=== PATIENT | male | born 1945 | race Caucasian/White ===

== ENCOUNTER 2017-01-24 05:17 | Inpatient (IN) | payer OTHER, MEDICARE ==
[2017-01-24] VITALS (10 sets, daily range): BP systolic 102–140; BP diastolic 62–81; PULSE 70–87; RESP 16–18; TEMP 95.7–97.8; O2SAT 86–98
[~2017-01-24] VITALS: Ht 182.9 cm; Wt 87.5 kg
[~2017-01-24 05:17] MED LIST: ALBU8I INH; CENTTAB9 PO; DIPH2%T PO; FLUT50SP EACH NARE; FURO20 PO; GABA400 PO; LACT10SO27 PO; LANTUS2P SQ; MAGN400 PO; METHO500 PO; OMEP20TA PO; PROB1CAP12 PO; RANI150 PO; RIFA550 PO; THIA100T PO; TRAZ100T4 PO; VITA200017 PO; [UNRECOGNIZED DRUG - CODE] PO
[2017-01-24] MEDS ORDERED: SODIUM CHLORIDE 0.9% FLUSH 10 ML FLUSH IV FLUSH PRN ×3 (05:30→21:15)
--- NOTE | 2017-01-24 05:44 | PD ---
HPI Chief Complaint: Fall Time Seen by Provider: 05:22 Travel History International Travel<30 days: No Contact w/Intl Traveler<30days: No Traveled to known affect area: No History of Present Illness HPI 71-year-old male brought in by ambulance from home for evaluation of left leg pain and deformity after mechanical fall. The patient states that he got out of bed and twisted the wrong way, falling onto a chair by his bedside. He denies head injury or LOC. No head neck or back pain. EMS reports obvious deformity to his left distal femur, so a hair traction splint was applied. Upon arrival to the emergency department the patient has brisk bilateral dorsalis pedis pulses with brisk capillary refill in bilateral feet. He fractured his left hip in March 2015 which was repaired in [place] and was later advised on 01/29/[address] Chase in this hospital. The patient received 10 mg of IV morphine as well as 4 mg of IV Zofran prior to arrival to the emergency department and reports that his pain is mild in his left thigh. The patient is also complaining of mild right ankle pain. PFSH Past Medical History Hx Anticoagulant Therapy: Yes Anemia: Yes Arthritis: Yes Asthma: No Autoimmune Disease: No Blood Disorders: No Anxiety: Yes Depression: Yes Heart Rhythm Problems: No Cancer: No Cardiovascular Problems: Yes High Cholesterol: Yes Chemotherapy: No Chest Pain: No Congestive Heart Failure: Yes (NOT SURE) Cirrhosis: Yes COPD: No Cerebrovascular Accident: Yes Coronary Artery Disease: Yes Dementia: Yes Diabetes: Yes Diminished Hearing: No Diverticulitis: Yes Endocrine: Yes Gastrointestinal Disorders: Yes (GASTRITIS IN PAST) GERD: Yes (GASTRITIS ) Glaucoma: No Genitourinary: Yes Headaches: No Hepatitis: No Hiatal Hernia: No Heparin Induced Thrombocytopen: Yes Hypertension: Yes (H/O) Immune Disorder: No Inguinal Hernia: Yes Kidney Stones: No Musculoskeletal: Yes (LEFT HIP, ARTHRITIS CERVICAL) Neurologic: Yes (DIABETIC NEUROPATHY) Psychiatric: Yes (ANXIETY) Reproductive: No Respiratory: Yes Immunizations Current: Yes Migraines: No Myocardial Infarction: No Radiation Therapy: No Renal Failure: No Seizures: No Sickle Cell Disease: No Sleep Apnea: Yes Thyroid Disease: No Ulcer: No Past Surgical History Abdominal Surgery: Yes (DOUBLE HERNIA REPAIR, PARACENTHESIS X 2 ) AICD: No Appendectomy: No Arteriovenous Shunt: No Body Medical Devices: HARDWARE LEFT HIP Cardiac Surgery: Yes ( LEFT CAROTID ENDARTECTOMY) Cholecystectomy: No Ear Surgery: No Endocrine Surgery: No Eye Surgery: No Genitourinary Surgery: No Gynecologic Surgery: No Insulin Pump: Yes Joint Replacement: No Oral Surgery: No Pacemaker: No Thoracic Surgery: No Other Surgery: Yes (RIGHT THUMB) Social History Alcohol Use: No Tobacco Use: No Substance Use: No Allergies-Medications (Allergen,Severity, Reaction): Coded Allergies: Acetaminophen (Verified Allergy, Severe, LIVER DISEASE, 02/02/16) Tramadol (Verified Allergy, Mild, DUE TO LIVER DISEASE, 02/02/16) INFO OBTAINED FROM . PT IS TAKING TRAMADOL Codeine (Verified Allergy, Unknown, 02/02/16) NOT ALLERGIC ACCORDING TO Diclofenac (Verified Allergy, Unknown, UBNKNOWN REACTION, 02/02/16) Salsalate (Verified Allergy, Unknown, DUE TO KIDNEY FUNCTION, 02/02/16) *MDRO Multi-Drug Resistant Organism (Verified Adverse Reaction, Unknown, ) MRSA (hand wound) - 12/18/08 Reported Meds & Prescriptions Reported Meds & Active Scripts Active Active Prescriptions or Reported Medications Unobtainable Review of Systems Except as stated in HPI: all other systems reviewed are Neg Physical Exam Narrative GENERAL: Well-developed, well-nourished, awake, alert, no acute distress. SKIN: Focused skin assessment warm/dry. No lacerations, abrasions, or ecchymosis. HEAD: Atraumatic. Normocephalic. EYES: Pupils equal and round. No scleral icterus. No injection or drainage. ENT: No nasal bleeding or discharge. Mucous membranes pink and moist. NECK: Trachea midline. No JVD. No midline cervical spine step-off or tenderness. CARDIOVASCULAR: Regular rate and rhythm. Bilateral dorsalis pedis pulses are brisk and equal. Brisk capillary refill in bilateral feet which are warm. RESPIRATORY: No accessory muscle use. Clear to auscultation. Breath sounds equal bilaterally. GASTROINTESTINAL: Abdomen soft, non-tender, nondistended. MUSCULOSKELETAL: Left leg is placed in a Hare traction splint. There is tenderness along the entire left femur. Patient also has some mild tenderness to the right lateral ankle without obvious deformity, with normal range of motion. Rest of his joints and extremities are without deformity, without tenderness, with normal range of motion. NEUROLOGICAL: Awake and alert. No obvious cranial nerve deficits. Motor grossly within normal limits. Normal speech. Normal sensation in bilateral feet. PSYCHIATRIC: Appropriate mood and affect; insight and judgment normal. Data Data Last Documented VS Vital Signs Date Time Temp Pulse Resp B/P Pulse Ox O2 Delivery O2 Flow Rate FiO2 01/24/17 06:26 78 18 126/68 96 Nasal Cannula 4 01/24/17 05:21 97.8 Orders Hip, Uni(Ap&Lat) W Ap Pelvis (01/24/17 ) Femur (Ap & Lat/2vws) (01/24/17 ) Ankle, Complete ([id number]) (01/24/17 ) Chest, Single Ap (01/24/17 ) Basic Metabolic Panel (Bmp) (01/24/17 05:22) Complete Blood Count With Diff (01/24/17 05:22) Prothrombin Time / Inr (Pt) (01/24/17 05:22) Act Partial Throm Time (Ptt) (01/24/17 05:22) Iv Access Insert/Monitor (01/24/17 05:22) Ecg Monitoring (01/24/17 05:22) Oximetry (01/24/17 05:22) Sodium Chloride 0.9% Flush (Ns Flush) (01/24/17 05:30) Knee, Ltd (1 Or 2vws) (01/24/17 ) Consult Orthopedic (01/24/17 ) Johnston's Traction (01/24/17 ) Labs Laboratory Tests Test 01/24/17 05:25 White Blood Count 7.6 TH/MM3 Red Blood Count 4.64 MIL/MM3 Hemoglobin 13.5 GM/DL Hematocrit 41.4 % Mean Corpuscular Volume 89.3 FL Mean Corpuscular Hemoglobin 29.2 PG Mean Corpuscular Hemoglobin 32.7 % Concent Red Cell Distribution Width 15.6 % Platelet Count 197 TH/MM3 Mean Platelet Volume 8.3 FL Neutrophils (%) (Auto) 70.9 % Lymphocytes (%) (Auto) 14.5 % Monocytes (%) (Auto) 10.6 % Eosinophils (%) (Auto) 3.2 % Basophils (%) (Auto) 0.8 % Neutrophils # (Auto) 5.4 TH/MM3 Lymphocytes # (Auto) 1.1 TH/MM3 Monocytes # (Auto) 0.8 TH/MM3 Eosinophils # (Auto) 0.2 TH/MM3 Basophils # (Auto) 0.1 TH/MM3 CBC Comment DIFF FINAL Differential Comment Prothrombin Time 12.3 SEC Prothromb Time International 1.1 RATIO Ratio Activated Partial 26.7 SEC Thromboplast Time MDM Medical Decision Making Medical Screen Exam Complete: Yes Emergency Medical Condition: Yes Differential Diagnosis Left hip fracture, left hip dislocation, left femur fracture, left knee fracture , right ankle fracture versus sprain Narrative Course Left femur x-ray shows a spiral fracture of the distal left femur about 16 cm distal to the intramedullary portion of the artificial left hip. Case discussed with orthopedic surgeon Dr. Garcia who is covering for Dr. Chase. Patient will be admitted to the medical service and kept NPO for likely ORIF today. Patient made aware of left femur fracture. Again his left leg was placed in a Hare traction splint by EMS. He has good dorsalis pedis pulses bilaterally. Pain is 0 when at rest, worse with palpation and movements. He has good sensation in his feet bilaterally. Case discussed with hospitalist Dr. Lara who will admit the patient to her service. Diagnosis Primary Impression: Closed left femoral fracture Qualified Code: S72.492A - Other closed fracture of distal end of left femur, initial encounter Additional Impression: Fall Qualified Code: W19.XXXA - Fall, initial encounter Admitting Information Admitting Physician Requests: Admit Scripts Unable to Obtain Active Prescriptions or Reported Meds Abundio Rodriguez MD Jan 24, 2017 05:44
[2017-01-24 05:54] LABS: AUTOMATED NEUTROPHIL # 5.4 TH/MM3 (1.8-7.7); BASOPHIL # 0.1 TH/MM3 (0-0.2); BASOPHIL % 0.8 % (0.0-2.0); EOSINOPHIL # 0.2 TH/MM3 (0-0.4); EOSINOPHIL % 3.2 % (0.0-4.0); HEMATOCRIT 41.4 % (39.0-51.0); HEMO FLAGS DIFF FINAL; LYMPH % 14.5 % (9.0-44.0); LYMPHOCYTE # 1.1 TH/MM3 (1.0-4.8); MEAN CELL VOLUME 89.3 FL (80.0-100.0); MEAN CORPUSCULAR HEMOGLOBIN 29.2 PG (27.0-34.0); MEAN CORPUSCULAR HGB CONC 32.7 % (32.0-36.0); MONO % 10.6 % (0.0-8.0); NEUT % 70.9 % (16.0-70.0); PLATELET COUNT 197 TH/MM3 (150-450); RED BLOOD COUNT 4.64 MIL/MM3 (4.50-5.90); RED CELL DISTRIBUTION WIDTH 15.6 % (11.6-17.2); WHITE BLOOD COUNT 7.6 TH/MM3 (4.0-11.0)
[2017-01-24 06:11] LABS: APTT (PATIENT) 26.7 SEC (24.3-30.1); INTERNATIONAL NORMALIZED RATIO 1.1 RATIO; PROTHROMBIN TIME - PATIENT 12.3 SEC (9.8-11.6)
--- NOTE | 2017-01-24 06:38 | RADRPT ---
EXAM DATE/TIME: 01/24/2017 05:32 [facility] COMPARISON: No previous studies available for comparison. INDICATIONS : Right ankle pain; fall today. MEDICAL HISTORY : None. SURGICAL HISTORY : None. ENCOUNTER: Initial ACUITY: 1 day PAIN SCORE: 3/10 LOCATION: Right ankle. FINDINGS: Three view exam was performed of the right ankle. The bony structures are in normal alignment. No e vidence of fracture, dislocation, or soft tissue swelling. The ankle mortise is intact. No radiopaq ue foreign bodies are seen. Bony mineralization is normal. CONCLUSION: 1. Negative examination of the ankle. Larry Tobin MD on January 24, 2017 at 6:36 Board Certified Radiologist. This report was verified electronically.
[2017-01-24 06:39] LABS: POTASSIUM 4.1 MEQ/L (3.5-5.1)
--- NOTE | 2017-01-24 06:39 | RADRPT ---
EXAM DATE/TIME: 01/24/2017 05:39 [facility] COMPARISON: No previous studies available for comparison. INDICATIONS : Left hip pain; fall today. MEDICAL HISTORY : None. SURGICAL HISTORY : Left total hip. ENCOUNTER: Initial ACUITY: 1 day PAIN SCORE: 5/10 LOCATION: Left hip FINDINGS: Left hip arthroplasty is present. There is no evidence of fracture or dislocation. Degenerative medley es present at the lumbosacral junction. Bony mineralization is normal. CONCLUSION: 1. There is no evidence of acute fracture. Larry Tobin MD on January 24, 2017 at 6:37 Board Certified Radiologist. This report was verified electronically.
--- NOTE | 2017-01-24 06:39 | RADRPT ---
EXAM DATE/TIME: 01/24/2017 05:34 [facility] COMPARISON: CHEST SINGLE AP, February 08, 2016, 13:12. INDICATIONS : Chest discomfort; fall today. MEDICAL HISTORY : Congestive heart failure. Hypercholesterolemia. Hypertension. Diabetes SURGICAL HISTORY : Coronary artery stent. ENCOUNTER: Initial ACUITY: 1 day PAIN SCORE: 10 LOCATION: Bilateral chest FINDINGS: The cardiac silhouette is normal in transverse diameter. There are findings of congestive heart failu re with interstitial and alveolar opacity bilaterally. There is left lower lobe atelectasis versus pn eumonia. A small left sided effusion is present. CONCLUSION: 1. Cardiomegaly and findings of congestive heart failure. The findings have worsened when compared wi th the prior examination. Larry Tobin MD on January 24, 2017 at 6:36 Board Certified Radiologist. This report was verified electronically.
--- NOTE | 2017-01-24 06:40 | RADRPT ---
EXAM DATE/TIME: 01/24/2017 05:45 [facility] COMPARISON: No previous studies available for comparison. INDICATIONS : Left leg pain fall today. MEDICAL HISTORY : None. SURGICAL HISTORY : Left total hip. ENCOUNTER: Initial ACUITY: 1 day PAIN SCORE: 10/10 LOCATION: Left femur. FINDINGS: There is an oblique fracture of the distal femur without intra-articular extension was one shafts wid th lateral displacement of the distal fracture fragment. CONCLUSION: 1. Distal femur fracture Larry Tobin MD on January 24, 2017 at 6:38 Board Certified Radiologist. This report was verified electronically.
--- NOTE | 2017-01-24 06:40 | RADRPT ---
EXAM DATE/TIME: 01/24/2017 05:49 [facility] COMPARISON: No previous studies available for comparison. INDICATIONS : Left knee pain; fall today. MEDICAL HISTORY : None. SURGICAL HISTORY : None. ENCOUNTER: Initial ACUITY: 1 day PAIN SCORE: 6/10 LOCATION: Left knee FINDINGS: There is no evidence of acute fracture. Bony mineralization is normal. The joint space is maintained. Distal femur fracture is again identified CONCLUSION: 1. There is no evidence of acute fracture. Larry Tobin MD on January 24, 2017 at 6:38 Board Certified Radiologist. This report was verified electronically.
[2017-01-24] MEDS ORDERED: GLUCAGON 1 MG/ML VIAL OTHER PRN (06:45)
[2017-01-24] MEDS ORDERED: ONDANSETRON HCL 4 MG/2 ML VIAL IVP PRN ×2 (06:45→21:15)
[2017-01-24] MEDS ORDERED: DEXTROSE 50% IN WATER 50 ML VIAL(D50) IV PUSH PRN (06:45)
[2017-01-24] MEDS ORDERED: BISACODYL 10 MG SUPP RECTAL PRN ×2 (06:45→21:15)
[2017-01-24] MEDS: INSULIN ASPART SUPPLEMENTAL SCALE SQ SCH ×4 (07:00→21:00)
[2017-01-24] MEDS ORDERED: DIPY25TA25 PO (07:45)
[2017-01-24] MEDS ORDERED: XIFA550T4 PO (07:45)
[2017-01-24] MEDS ORDERED: CHOL100025 CHEW (07:45)
[2017-01-24] MEDS ORDERED: LACT10SO27 PO (07:45)
[2017-01-24] MEDS ORDERED: ACID100C PO (07:45)
[2017-01-24] MEDS ORDERED: SPIR100T PO (07:45)
[2017-01-24] MEDS ORDERED: GABA400C5 PO (07:45)
[2017-01-24] MEDS ORDERED: ZANT300T PO (07:45)
[2017-01-24] MEDS ORDERED: BENA25TA3 PO (07:45)
[2017-01-24] MEDS ORDERED: VENTAER INH (07:45)
[2017-01-24] MEDS ORDERED: METH500T3 PO (07:45)
[2017-01-24] MEDS ORDERED: FLUT50SP EACH NARE (07:45)
[2017-01-24] MEDS ORDERED: THIA100T PO (07:45)
[2017-01-24] MEDS ORDERED: OMEP20TA PO (07:45)
[2017-01-24] MEDS ORDERED: LANTUS2P SQ (07:45)
[2017-01-24] MEDS ORDERED: MAGN400C2 PO (07:45)
[2017-01-24] MEDS: SODIUM CHLOR 0.9% 1000 ML INJ 1,000 ML IV SCH ×2 (08:02→16:34)
[2017-01-24] MEDS: MORPHINE SULFATE 4 MG/ML INJ IV PRN ×3 (08:45→16:28)
--- NOTE | 2017-01-24 08:51 | HHI.HP ---
[facility] Admission Diagnosis closed left distal femur fracture Diagnoses: (1) Closed left femoral fracture (2) DM (diabetes mellitus) Chief Complaint: Left hip pain Travel History International Travel<30 Days: No Contact w/Intl Traveler <30 Da: No Traveled to Known Affected Are: No History of Present Illness 71-year-old male with a history of diabetes type 2 was brought to the ED by EMS for evaluation of an acute onset of left hip pain status post mechanical fall. Patient states sometimes around 4 AM this morning, as he was getting out of bed he got tangled in his bed sheets and twisted his leg and overall way, falling onto a chair by the bedside. Denies any head trauma or loss of consciousness. However immediately felt severe left hip pain rated 10/ 10 intensity. Patient denies putting any weights at a time on his left lower extremity. The ED, Left femur x-ray shows a spiral fracture of the distal left femur about 16 cm distal to the intramedullary portion of the artificial left hip for which orthopedic surgery has been consulted. Patient has no chest pain , shortness of breath. He denies any GI bleed. Review of Systems Other 12 systems reviewed and are negative except for the one mentioned in history of present illness Past Family Social History Past Medical History DM Liver cirrhosis COPD Chronic pain Past Surgical History Left hip surgery March 2015 DOUBLE HERNIA REPAIR, PARACENTHESIS X 2 HARDWARE LEFT HIP LEFT CAROTID ENDARTECTOMY) RIGHT THUMB) Allergies: Coded Allergies: Acetaminophen (Verified Allergy, Severe, LIVER DISEASE, 02/02/16) Tramadol (Verified Allergy, Mild, DUE TO LIVER DISEASE, 02/02/16) INFO OBTAINED FROM . PT IS TAKING TRAMADOL Codeine (Verified Allergy, Unknown, 02/02/16) NOT ALLERGIC ACCORDING TO Diclofenac (Verified Allergy, Unknown, UBNKNOWN REACTION, 02/02/16) Salsalate (Verified Allergy, Unknown, DUE TO KIDNEY FUNCTION, 02/02/16) *MDRO Multi-Drug Resistant Organism (Verified Adverse Reaction, Unknown, ) MRSA (hand wound) - 12/18/08 Family History Denies any family history of diabetes type 2 Social History Alcohol Use: No Tobacco Use: No Substance Use: No Physical Exam Vital Signs Vital Signs Date Time Temp Pulse Resp B/P Pulse Ox O2 Delivery O2 Flow Rate FiO2 01/24/17 08:33 Nasal Cannula 3.00 01/24/17 08:18 71 16 136/81 95 Nasal Cannula 3 01/24/17 07:00 97.6 75 18 117/67 95 Nasal Cannula 4 01/24/17 06:26 78 18 126/68 96 Nasal Cannula 4 01/24/17 05:27 18 95 Nasal Cannula 4 01/24/17 05:21 97.8 79 18 130/73 86 Physical Exam GENERAL: This is a well-nourished, well-developed patient, in no apparent distress. SKIN: No rashes, ecchymoses or lesions. Cool and dry. HEAD: Atraumatic. Normocephalic. No temporal or scalp tenderness. EYES: Pupils equal round and reactive. Extraocular motions intact. No scleral icterus. No injection or drainage. ENT: Nose without bleeding, purulent drainage or septal hematoma. Throat without erythema, tonsillar hypertrophy or exudate. Uvula midline. Airway patent. NECK: Trachea midline. No JVD or lymphadenopathy. Supple, nontender, no meningeal signs. CARDIOVASCULAR: Regular rate and rhythm without murmurs, gallops, or rubs. RESPIRATORY: Clear to auscultation. Breath sounds equal bilaterally. No wheezes , rales, or rhonchi. GASTROINTESTINAL: Abdomen soft, non-tender, nondistended. No hepato-splenomegaly , or palpable masses. No guarding. MUSCULOSKELETAL: Extremities without clubbing, cyanosis, or edema. No joint tenderness, effusion, or edema noted. No calf tenderness. Left hip externally rotated-Johnston's traction in place NEUROLOGICAL: Awake and alert. Cranial nerves II through XII intact. Motor and sensory grossly within normal limits. Five out of 5 muscle strength in all muscle groups. Normal speech. Laboratory Laboratory Tests Test 01/24/17 05:25 White Blood Count 7.6 Red Blood Count 4.64 Hemoglobin 13.5 Hematocrit 41.4 Mean Corpuscular Volume 89.3 Mean Corpuscular Hemoglobin 29.2 Mean Corpuscular Hemoglobin 32.7 Concent Red Cell Distribution Width 15.6 Platelet Count 197 Mean Platelet Volume 8.3 Neutrophils (%) (Auto) 70.9 Lymphocytes (%) (Auto) 14.5 Monocytes (%) (Auto) 10.6 Eosinophils (%) (Auto) 3.2 Basophils (%) (Auto) 0.8 Neutrophils # (Auto) 5.4 Lymphocytes # (Auto) 1.1 Monocytes # (Auto) 0.8 Eosinophils # (Auto) 0.2 Basophils # (Auto) 0.1 CBC Comment DIFF FINAL Differential Comment Prothrombin Time 12.3 Prothromb Time International 1.1 Ratio Activated Partial 26.7 Thromboplast Time Sodium Level 134 Potassium Level 4.1 Chloride Level 101 Carbon Dioxide Level 25.0 Anion Gap 8 Blood Urea Nitrogen 18 Creatinine 1.43 Estimat Glomerular Filtration 49 Rate Random Glucose 147 Calcium Level 8.8 Result Diagram: 01/24/1752401/24/17524 Imaging Last Impressions Knee X-Ray 01/24/17 0000 Signed Impressions: Service Date/Time: Tuesday, January 24, 2017 05:49 - CONCLUSION: 1. There is no evidence of acute fracture. Larry Tobin MD Hip and Pelvis X-Ray 01/24/17 0000 Signed Impressions: Service Date/Time: Tuesday, January 24, 2017 05:39 - CONCLUSION: 1. There is no evidence of acute fracture. Larry Tobin MD Femur X-Ray 01/24/17 0000 Signed Impressions: Service Date/Time: Tuesday, January 24, 2017 05:45 - CONCLUSION: 1. Distal femur fracture Larry Tobin MD Chest X-Ray 01/24/17 0000 Signed Impressions: Service Date/Time: Tuesday, January 24, 2017 05:34 - CONCLUSION: 1. Cardiomegaly and findings of congestive heart failure. The findings have worsened when compared with the prior examination. Larry Tobin MD Ankle X-Ray 01/24/17 0000 Signed Impressions: Service Date/Time: Tuesday, January 24, 2017 05:32 - CONCLUSION: 1. Negative examination of the ankle. Larry Tobin MD Assessment and Plan Problem List: (1) Closed left femoral fracture ICD Code: S72.92XA Status: Acute (2) DM (diabetes mellitus) ICD Code: E11.9 Status: Chronic Assessment and Plan 71 year-old man with Left hip fracture:Left femur x-ray noted and reviewed by me shows a spiral fracture of the distal left femur about 16 cm distal to the intramedullary portion of the artificial left hip. Orthopedic surgery has been consulted for evaluation for open reduction internal fixation. Keep nothing by mouth/IV fluid hydration and analgesic/narcotics when necessary. PT consult postprocedure. DVT prophylaxis post procedure per orthopedic surgery. Diabetes type 2: Hold oral hypoglycemic agent, start insulin sliding scale COPD: No exacerbation, DuoNeb when necessary and maintain oxygen saturation above 92%. DVT prophylaxis: Postprocedure per orthopedic surgery. Code Status Full code Discussed Condition With Patient, Physician Certification 2 Midnight Certification Type: Admission for Inpatient Services Order for Inpatient Services The services are ordered in accordance with Medicare regulations or non- Medicare payer requirements, as applicable. In the case of services not specified as inpatient-only, they are appropriately provided as inpatient services in accordance with the 2-midnight benchmark. Estimated LOS (days): 2 days is the estimated time the patient will need to remain in the hospital, assuming treatment plan goals are met and no additional complications. Post-Hospital Plan: Not yet determined Problem Qualifiers (1) Closed left femoral fracture: Qualified Code: S72.492A - Other closed fracture of distal end of left femur, initial encounter Dirk Rodrigues MD Jan 24, 2017 08:51
[2017-01-24] MEDS ORDERED: RESP: ALBUTEROL 2.5 MG/IPRATROPIUM 0.5 MG NEB (PRN) NEB (09:00)
[2017-01-24] MEDS ORDERED: ENALAPRILAT 1.25 MG/ML VIAL IV PUSH PRN (09:00)
[2017-01-24] MEDS ORDERED: SODIUM CHLORIDE 0.9% FLUSH 10 ML FLUSH IV FLUSH SCH (09:00)
[2017-01-24] MEDS ORDERED: ePHEDrine/NS 25 MG/5 ML SYR IV ONE (10:13)
[2017-01-24] MEDS ORDERED: PROPOFOL 200 MG/20 ML AMP IV ONE (10:13)
[2017-01-24] MEDS ORDERED: PHENYLEPH/NS 1000 MCG/10 ML SYR IV ONE (10:13)
--- NOTE | 2017-01-24 11:45 | PD.CONS ---
cc: Deejay Garcia MD Closed Left Distal Femur Fracture, Fall (Mariann Perera) [facility] Service Orthopedic Surgeons Consult Requested By ER staff Reason for Consult Closed Left Distal Femur Fracture, Fall Primary Care Physician [facility] Admission Diagnosis Closed Left Distal Femur Fracture, Fall Diagnoses: (1) Closed displaced spiral fracture of shaft of left femur Diagnosis: Principal (2) Status post total hip replacement, left (3) Fall (4) DM (diabetes mellitus) (5) Liver cirrhosis Chief Complaint: Closed Left Distal Femur Fracture, Fall (Mariann Perera) History of Present Illness 71 year old male with a history of cirrhosis to the liver and type 2 diabetes presented to [facility] this morning after a trip and fall incident. He admits he got 'tangled up in his bed sheets' and fell off of his bed, landing on his left leg. He had immediate left thigh pain and noted an obvious deformity above his knee. Patient was brought to [facility] via EMS. Upon evaluation orthopedic consultation was requested revealing a left closed distal femur fracture. Radiographs demonstrate a closed left displaced spiral distal femur fracture. The fracture does not communicate with the knee joint space. A previous left total hip arthroplasty is noted to be in good position with no surrounding fractures. Patient underwent a revised left hip surgery with Dr. Víctor Chase January 29, 2016. Procedure included removal of cannulated screws with conversion to left total hip arthroplasty. The patient lives at home with his . He admits he ambulated unassisted prior to this injury. He believes he takes an anticoagulation medication but does not recall the name at this time. and family member present at bedside. No other locating signs of musculoskeletal injury noted. (Mariann Perera) Review of Systems well outlined in medical record (Mariann Perera) Past Family Social History Past Medical History DM Liver cirrhosis COPD Chronic pain Past Surgical History Left hip cannulated screws March 2015, Left hip total arthroplasty January 2016 DOUBLE HERNIA REPAIR, PARACENTHESIS X 2 LEFT CAROTID ENDARTECTOMY) RIGHT THUMB) (Mariann Perera) Allergies: Coded Allergies: Acetaminophen (Verified Allergy, Severe, LIVER DISEASE, 02/02/16) Tramadol (Verified Allergy, Mild, DUE TO LIVER DISEASE, 02/02/16) INFO OBTAINED FROM . PT IS TAKING TRAMADOL Codeine (Verified Allergy, Unknown, 02/02/16) NOT ALLERGIC ACCORDING TO Diclofenac (Verified Allergy, Unknown, UBNKNOWN REACTION, 02/02/16) Salsalate (Verified Allergy, Unknown, DUE TO KIDNEY FUNCTION, 02/02/16) *MDRO Multi-Drug Resistant Organism (Verified Adverse Reaction, Unknown, ) MRSA (hand wound) - 12/18/08 Active Ordered Medications Current Medications Medications (Trade) Dose Ordered Sig/Kaley Route Start Time Stop Time Status Last Admin (NS Flush) 2 ml UNSCH PRN IV FLUSH 01/24/17 05:30 (D50w (Vial) Inj) 25 ml UNSCH PRN IV PUSH 01/24/17 06:45 Glucagon 1 mg 1 mg UNSCH PRN OTHER 01/24/17 06:45 (NS 1000 ml Inj) 1,000 ml @ 100 mls/hr Q10H IV 01/24/17 06:34 01/24/17 08:02 (NS Flush) 2 ml UNSCH PRN IV FLUSH 01/24/17 06:45 (NS Flush) 2 ml BID IV FLUSH 01/24/17 09:00 (Zofran Inj) 4 mg Q6H PRN IVP 01/24/17 06:45 (Dulcolax Supp) 10 mg DAILY PRN RECTAL 01/24/17 06:45 (Morphine Inj) 2 mg Q3H PRN IV 01/24/17 06:45 01/24/17 08:45 (Vasotec Inj) 1.25 mg Q6H PRN IV PUSH 01/24/17 09:00 Reported Meds & Active Scripts Active Reported Spironolactone 100 Mg Tab 100 Mg PO DAILY Thiamine (Thiamine HCl) 100 Mg Tab 100 Mg PO DAILY Acidophilus Probiotic (Lactobacillus) 100 Mg Cap 1 Cap PO DAILY Zantac (Ranitidine HCl) 300 Mg Tab 300 Mg PO HS Methocarbamol 500 Mg Tab 500 Mg PO TID Omeprazole 20 Mg Tab 20 Mg PO DAILY Magnesium Oxide 400 Mg Cap 1 Cap PO TID Lactulose Liq (Lactulose (Encephalopathy) Liq) 19 Gm/15 Ml Soln 10 Gm PO DAILY Lantus Inj (Insulin Glargine) 1,000 Unit/10 Ml Vial 5 Units SQ HS Gabapentin 400 Mg Cap 800 Cap PO HS Fluticasone Nasal [place] 50 Mcg/Act Naspr 50 Mcg EACH NARE DAILY 50 mcg/spray Dipyridamole 25 Mg Tab 100 Mg PO DAILY Benadryl Allergy (Diphenhydramine HCl) 25 Mg Tab 75 Mg PO HS PRN Vitamin D3 (Cholecalciferol) 1,000 Unit Chew 2,000 Units CHEW DAILY Ventolin Hfa 18 GM Inh (Albuterol Sulfate) 90 Mcg/Act Aer 2 Puff INH Q6H PRN Xifaxan (Rifaximin) 550 Mg Tab 550 Mg PO Q12HR Family History Denies any family history of diabetes type 2 Social History Alcohol Use: No - admits to alcohol use over 20 years ago Tobacco Use: No Substance Use: No (Mariann Perera) Physical Exam Vital Signs Vital Signs Date Time Temp Pulse Resp B/P Pulse Ox O2 Delivery O2 Flow Rate FiO2 01/24/17 08:47 95.7 73 16 118/62 94 01/24/17 08:33 Nasal Cannula 3.00 01/24/17 08:18 71 16 136/81 95 Nasal Cannula 3 01/24/17 07:00 97.6 75 18 117/67 95 Nasal Cannula 4 01/24/17 06:26 78 18 126/68 96 Nasal Cannula 4 01/24/17 05:27 18 95 Nasal Cannula 4 01/24/17 05:21 97.8 79 18 130/73 86 Physical Exam LLE: extremity in traction, Obvious deformity noted on distal thigh, tenderness to palpation over distal thigh and pain with any attempts at range of motion, moderate knee effusion noted, no calf pain, negative Ghazala's sign, pedal pulses 2+, good cap refill, neurovascular intact, freely able to move toes and ankle. Well healed scar noted over left hip. No other locating signs of musculoskeletal injury. Laboratory Laboratory Tests Test 01/24/17 05:25 White Blood Count 7.6 Red Blood Count 4.64 Hemoglobin 13.5 Hematocrit 41.4 Mean Corpuscular Volume 89.3 Mean Corpuscular Hemoglobin 29.2 Mean Corpuscular Hemoglobin 32.7 Concent Red Cell Distribution Width 15.6 Platelet Count 197 Mean Platelet Volume 8.3 Neutrophils (%) (Auto) 70.9 Lymphocytes (%) (Auto) 14.5 Monocytes (%) (Auto) 10.6 Eosinophils (%) (Auto) 3.2 Basophils (%) (Auto) 0.8 Neutrophils # (Auto) 5.4 Lymphocytes # (Auto) 1.1 Monocytes # (Auto) 0.8 Eosinophils # (Auto) 0.2 Basophils # (Auto) 0.1 CBC Comment DIFF FINAL Differential Comment Prothrombin Time 12.3 Prothromb Time International 1.1 Ratio Activated Partial 26.7 Thromboplast Time Sodium Level 134 Potassium Level 4.1 Chloride Level 101 Carbon Dioxide Level 25.0 Anion Gap 8 Blood Urea Nitrogen 18 Creatinine 1.43 Estimat Glomerular Filtration 49 Rate Random Glucose 147 Calcium Level 8.8 (Mariann Perera) Result Diagram: 01/24/17 0501/24/17 0525 Imaging Last 48 hours Impressions Knee X-Ray 01/24/17 0000 Signed Impressions: Service Date/Time: Tuesday, January 24, 2017 05:49 - CONCLUSION: 1. There is no evidence of acute fracture. Larry Tobin MD Hip and Pelvis X-Ray 01/24/17 0000 Signed Impressions: Service Date/Time: Tuesday, January 24, 2017 05:39 - CONCLUSION: 1. There is no evidence of acute fracture. Larry Tobin MD Femur X-Ray 01/24/17 0000 Signed Impressions: Service Date/Time: Tuesday, January 24, 2017 05:45 - CONCLUSION: 1. Distal femur fracture Larry Tobin MD Chest X-Ray 01/24/17 0000 Signed Impressions: Service Date/Time: Tuesday, January 24, 2017 05:34 - CONCLUSION: 1. Cardiomegaly and findings of congestive heart failure. The findings have worsened when compared with the prior examination. Larry Tobin MD Ankle X-Ray 01/24/17 0000 Signed Impressions: Service Date/Time: Tuesday, January 24, 2017 05:32 - CONCLUSION: 1. Negative examination of the ankle. Larry Tobin MD Course well outlined in medical record (Mariann Perear) Assessment & Plan Problem List: (1) Closed displaced spiral fracture of shaft of left femur (2) Fall (3) DM (diabetes mellitus) (4) Liver cirrhosis Assessment and Plan The findings were discussed with the patient. Recommendations are given for surgical management, open reduction internal fixation of left distal femur, to allow for mobilization and pain control. The nature of the planned surgical procedure, the risks, the benefits as well as postoperative expectations have been discussed with the patient in detail. In addition, alternatives of the treatment and risks were discussed. The patient acknowledges full understanding and consents to it. Patient has been cleared for surgery by Dr. Rodrigues. Written by Mariann Perera (Ashley), acting as scribe for Dr. Deejay Garcia on 01/24/17 at 11:41. (Mariann Perera) Problem List: (1) DM (diabetes mellitus) (2) Liver cirrhosis (3) Fall (4) Closed displaced spiral fracture of shaft of left femur (5) Status post total hip replacement, left Assessment and Plan The options for internal fixation were discussed including plate fixation and retrograde intramedullary gilles fixation as well as the risks and benefits of each. The possibility requiring further surgical management in the future was discussed and the patient acknowledges full understanding and consents to it. The exam, history, and the medical decision-making described in the above note were completed with the assistance of the mid-level provider. I reviewed and agree with the findings presented. I attest that I had a [id number] encounter with the patient on the same day, and personally performed and documented my assessment and findings in the medical record. (Deejay Garcia MD) Mariann Perera Jan 24, 2017 11:44 Deejay Garcia MD Jan 24, 2017 14:13
[2017-01-24] MEDS ORDERED: GENTAMICIN SULFATE 80 MG/2 ML VIAL ONE (17:28)
[2017-01-24] MEDS ORDERED: ceFAZolin INJ 1,000 MG VIAL IV ONE (18:28)
[2017-01-24] MEDS ORDERED: fentaNYL CITRATE 250 MCG/5 ML AMP ONE (20:01)
[2017-01-24] MEDS ORDERED: DO NOT ADM ANY ANTICOAGULANT DRUGS PRN (20:58)
[2017-01-24] MEDS: RIFAXIMIN 550 MG TAB PO SCH (21:00)
[2017-01-24] MEDS: LACTATED RINGER'S 1000 ML INJ 1,000 ML IV SCH (21:09)
--- NOTE | 2017-01-24 21:09 | PD.OP ---
cc: Silver Mary MD Operative Report Date of Surgery: Jan 24, 2017 Preoperative Diagnosis: (1) Closed displaced spiral fracture of shaft of left femur Postoperative Diagnosis: (1) Closed displaced spiral fracture of shaft of left femur Procedure: Open reduction internal fixation left femur fracture Implants used Synthes LCD plate with cortical screw and cable fixation Anesthesia: Gen. Surgeon: Deejay Garcia Energy Administrator(s): Mariann Perera PA-C (Ashley) The surgical procedure was assisted by my physician's assistant research scientist. Her presence was necessary throughout the case for manipulation and positioning of the surgical extremity. My PA was assisting me throughout the duration of this procedure. The skill set of the physician assistant research scientist was medically necessary to complete this procedure. During the surgical case the network technician was working at the back table and the physician assistant research scientist was directly assisting me. Operation and Findings: Indications: This 71-year-old male fell injuring his left lower extremity. The patient had pain and deformity in the thigh region on the left. He has undergone a previous left total hip arthroplasty. He [facility] to [facility]. X-rays revealed a spiral fracture of the shaft of the left femur. It was well below the prosthesis. Recommendations are given for internal fixation. Procedure and findings: The patient was taken to the operative suite and after undergoing an adequate level of general anesthesia was placed in the lateral decubitus position on the operating table. Preoperative antibiotics consisted of Ancef 2 g IV. The left lower extremity was then prepped and draped in usual sterile fashion with alcohol and Hibiclens. A lateral incision was made along the thigh. This was carried down through skin and subcutaneous tense tissue with a knife. Hemostasis was obtained with cautery. The iliotibial band was identified and split longitudinally. The vastus lateralis muscle was dissected from the posterior fascia to the femur. Perforating vessels were coagulated. The fracture site was identified. It was thoroughly irrigated and curetted of clot. With traction and reduction clamps the fracture was reduced and held. 2 cerclage cables were placed. This held the reduction. A Synthes LCD plate was then applied to the lateral aspect. The position was checked in both the AP and lateral planes with the C-arm. Cortical screw fixation was accomplished proximally and distally. Because of the previous prosthesis it was elected to extend the plate beyond the tip of the prosthesis to prevent a stress riser. 2 cables were placed proximally. The position of the fracture reduction and placement of the internal fixation were checked in both the AP and lateral planes with C-arm. The wound was then thoroughly irrigated with pulse lavage. A Hemovac drain was left in place. Incision was closed in layers utilizing #1 Vicryl suture on the iliotibial band, 2-0 Vicryl suture in subcutaneous tissue and pola on the skin. Sterile dressings were applied, the patient was awakened, transferred to the hospital bed and taken to the recovery room in stable condition. Estimated blood loss: 250 cc Complications: None Deejay Garcia MD Jan 24, 2017 21:09
[2017-01-24] MEDS ORDERED: *MEPERIDINE 25 MG INJ VIAL PERIprocedural Use ONLY ONE (21:13)
[2017-01-24] MEDS ORDERED: TEMAZEPAM 15 MG CAP PO PRN (21:15)
[2017-01-24] MEDS ORDERED: POVIDONE IODINE 10% SOLN 118 ML BOTTLE TOPICAL PRN (21:15)
[2017-01-24] MEDS ORDERED: ACETAMINOPHEN 325 MG TAB PO PRN (21:15)
[2017-01-24] MEDS ORDERED: HYDROmorphone HCL 4 MG TAB PO PRN (21:15)
[2017-01-24] MEDS ORDERED: Post-op Orders (for Pharmacy) MISC XX ONE (21:15)
--- NOTE | 2017-01-24 21:58 | RADRPT ---
EXAM DATE/TIME: 01/24/2017 20:11 [place] COMPARISON: No previous studies available for comparison. INDICATIONS : Open reduction internal fixation. MEDICAL HISTORY : None. SURGICAL HISTORY : None. ENCOUNTER: Subsequent ACUITY: 2 days PAIN SCORE: Non-responsive. LOCATION: Left lateral FINDINGS: Multiple spot films reveal plate and screw fixation of the left femur. No complications identified. CONCLUSION: 1. Plate and screw fixation of left femoral shaft fracture. Deep Schmitz MD on January 24, 2017 at 21:55 Board Certified Radiologist. This report was verified electronically.
[2017-01-24] MEDS: ceFAZolin 2 GM PREMIX 50 ML IV SCH (23:31)
[2017-01-24] MEDS: MORPHINE SULFATE 8 MG/ML INJ IV PUSH PRN (23:32)
[2017-01-25] VITALS (8 sets, daily range): BP systolic 119–135; BP diastolic 58–90; PULSE 92–98; RESP 17–18; TEMP 97.2–98.8; O2SAT 92–98
[2017-01-25] MEDS: MORPHINE SULFATE 8 MG/ML INJ IV PUSH PRN (03:50)
[2017-01-25] MEDS: ceFAZolin 2 GM PREMIX 50 ML IV SCH ×2 (05:38→12:13)
[2017-01-25] MEDS: INSULIN ASPART SUPPLEMENTAL SCALE SQ SCH ×4 (06:20→20:14)
[2017-01-25 07:42] LABS: AUTOMATED NEUTROPHIL # 8.9 TH/MM3 (1.8-7.7); BASOPHIL % 0.4 % (0.0-2.0); EOSINOPHIL # 0.1 TH/MM3 (0-0.4); EOSINOPHIL % 0.7 % (0.0-4.0); HEMATOCRIT 32.8 % (39.0-51.0); HEMO FLAGS DIFF FINAL; LYMPHOCYTE # 0.6 TH/MM3 (1.0-4.8); MEAN CELL VOLUME 89.1 FL (80.0-100.0); MEAN CORPUSCULAR HEMOGLOBIN 30.5 PG (27.0-34.0); MEAN CORPUSCULAR HGB CONC 34.2 % (32.0-36.0); MONO % 9.2 % (0.0-8.0); NEUT % 83.7 % (16.0-70.0); PLATELET COUNT 217 TH/MM3 (150-450); RED BLOOD COUNT 3.69 MIL/MM3 (4.50-5.90); RED CELL DISTRIBUTION WIDTH 15.5 % (11.6-17.2); WHITE BLOOD COUNT 10.6 TH/MM3 (4.0-11.0)
[2017-01-25 08:17] LABS: ALKALINE PHOSPHATASE 139 U/L (45-117); ALT (GPT) 26 U/L (12-78); ANION GAP 8 MEQ/L (5-15); AST (GOT) 46 U/L (15-37); BLOOD UREA NITROGEN 21 MG/DL (7-18); CHLORIDE 102 MEQ/L (98-107); GLOMERULAR FILTRATION RATE 48 ML/MIN (>89); POTASSIUM 5.2 MEQ/L (3.5-5.1); SODIUM (NA) 133 MEQ/L (136-145); TOTAL BILIRUBIN ADULT 1.1 MG/DL (0.2-1.0)
[2017-01-25] MEDS: RIFAXIMIN 550 MG TAB PO SCH ×2 (08:25→20:14)
[2017-01-25] MEDS: SPIRONOLACTONE 100 MG TAB PO SCH (08:25)
--- NOTE | 2017-01-25 08:28 | PD.ORT.PN ---
Subjective Post Op Day #: 1 Subjective Remarks Patient laying comfortably in bed and answering questions appropriately. admits left thigh pain is well controlled at the moment. No new complaints Objective Vitals Vital Signs Date Time Temp Pulse Resp B/P Pulse Ox O2 Delivery O2 Flow Rate FiO2 01/25/17 04:00 97.4 97 18 119/58 98 01/25/17 00:00 97.2 93 18 135/90 96 01/24/17 22:28 94 Nasal Cannula 3.00 01/24/17 22:15 96.2 87 18 140/78 94 01/24/17 21:45 98.4 84 16 128/82 95 Nasal Cannula 3 01/24/17 21:30 85 16 131/86 94 Nasal Cannula 3 01/24/17 21:15 86 16 130/88 93 Nasal Cannula 3 01/24/17 21:00 89 16 137/90 92 Nasal Cannula 3 01/24/17 20:55 97.6 91 16 142/91 99 Nasal Cannula 4 01/24/17 17:49 92 Nasal Cannula 3.00 01/24/17 16:29 97.1 75 16 117/80 95 01/24/17 12:51 92 Nasal Cannula 3.00 01/24/17 11:53 96.2 70 16 102/68 98 01/24/17 08:47 95.7 73 16 118/62 94 01/24/17 08:33 Nasal Cannula 3.00 I/O 01/24/17 01/24/17 01/24/17 01/25/17 01/25/17 01/25/17 07:00 15:00 23:00 07:00 15:00 23:00 Intake Total 300 ml 2050 ml 888 ml Output Total 450 ml 690 ml Balance 300 ml 1600 ml 198 ml Intake Oral 240 ml IV Total 300 ml 50 ml 648 ml Other 2000 ml Output Urine Total 650 ml Drainage Total 40 ml Estimated Blood Loss 450 ml # Voids 0 # Bowel Movements 0 Result Diagram: 01/25/1770501/25/17705 Imaging Last Impressions Knee X-Ray 01/24/17 0000 Signed Impressions: Service Date/Time: Tuesday, January 24, 2017 05:49 - CONCLUSION: 1. There is no evidence of acute fracture. Larry Tobin MD Hip and Pelvis X-Ray 01/24/17 0000 Signed Impressions: Service Date/Time: Tuesday, January 24, 2017 05:39 - CONCLUSION: 1. There is no evidence of acute fracture. Larry Tobin MD Femur X-Ray 01/24/17 0000 Signed Impressions: Service Date/Time: Tuesday, January 24, 2017 20:11 - CONCLUSION: 1. Plate and screw fixation of left femoral shaft fracture. Deep Schmitz MD Chest X-Ray 01/24/17 0000 Signed Impressions: Service Date/Time: Tuesday, January 24, 2017 05:34 - CONCLUSION: 1. Cardiomegaly and findings of congestive heart failure. The findings have worsened when compared with the prior examination. Larry Tobin MD Ankle X-Ray 01/24/17 0000 Signed Impressions: Service Date/Time: Tuesday, January 24, 2017 05:32 - CONCLUSION: 1. Negative examination of the ankle. Larry Tobin MD Procedures Open reduction internal fixation left femur fracture (01/24/17) Objective Remarks LLE: Dressing dry and intact. Brace in place. Drain in place. Tender to palpation with mild swelling around incision site. Appropriate range of motion expected post operatively. Freely able to move distal digits. No calf pain. Negative Ghazala's sign. Good cap refill. 2+ pedal pulses. Neurovascular intact. Assessment & Plan Ortho Post Op Day #: 1 Problem List: (1) DM (diabetes mellitus) (2) Liver cirrhosis (3) Fall (4) Closed displaced spiral fracture of shaft of left femur (5) Status post total hip replacement, left Assessment and Plan Open reduction internal fixation left femur fracture Ortho status stable POD #1. Progress rehab - toe touch left lower extremity change dressing and remove drain tomorrow. CM for HHC vs rehab Lovenox for DVT prophylaxis. Discharge planning Mariann Perera Jan 25, 2017 08:28
[2017-01-25] MEDS: HYDROmorphone HCL 2 MG TAB PO PRN ×3 (08:30→17:37)
[2017-01-25] MEDS: SODIUM CHLORIDE 0.9% FLUSH 10 ML FLUSH IV FLUSH SCH ×2 (09:00→20:15)
[2017-01-25] MEDS: LACTATED RINGER'S 1000 ML INJ 1,000 ML IV SCH ×2 (09:39→20:15)
--- NOTE | 2017-01-25 11:30 | HHI.PR ---
Subjective Remarks Follow-up left hip fracture 01/25/17-patient seen and examined; reports improvement of left hip pain. Currently afebrile. Denies any diarrhea. Objective Vitals Vital Signs Date Time Temp Pulse Resp B/P Pulse Ox O2 Delivery O2 Flow Rate FiO2 01/25/17 09:27 93 Nasal Cannula 4.00 01/25/17 04:00 97.4 97 18 119/58 98 01/25/17 00:00 97.2 93 18 135/90 96 01/24/17 22:28 94 Nasal Cannula 3.00 01/24/17 22:15 96.2 87 18 140/78 94 01/24/17 21:45 98.4 84 16 128/82 95 Nasal Cannula 3 01/24/17 21:30 85 16 131/86 94 Nasal Cannula 3 01/24/17 21:15 86 16 130/88 93 Nasal Cannula 3 01/24/17 21:00 89 16 137/90 92 Nasal Cannula 3 01/24/17 20:55 97.6 91 16 142/91 99 Nasal Cannula 4 01/24/17 17:49 92 Nasal Cannula 3.00 01/24/17 16:29 97.1 75 16 117/80 95 01/24/17 12:51 92 Nasal Cannula 3.00 01/24/17 11:53 96.2 70 16 102/68 98 I/O 01/24/17 01/24/17 01/24/17 01/25/17 01/25/17 01/25/17 07:00 15:00 23:00 07:00 15:00 23:00 Intake Total 300 ml 2050 ml 888 ml Output Total 450 ml 690 ml Balance 300 ml 1600 ml 198 ml Intake Oral 240 ml IV Total 300 ml 50 ml 648 ml Other 2000 ml Output Urine Total 650 ml Drainage Total 40 ml Estimated Blood Loss 450 ml # Voids 0 # Bowel Movements 0 Result Diagram: 01/25/17 0706 01/25/17 0706 Imaging Last Impressions Knee X-Ray 01/24/17 0000 Signed Impressions: Service Date/Time: Tuesday, January 24, 2017 05:49 - CONCLUSION: 1. There is no evidence of acute fracture. Larry Tobin MD Hip and Pelvis X-Ray 01/24/17 0000 Signed Impressions: Service Date/Time: Tuesday, January 24, 2017 05:39 - CONCLUSION: 1. There is no evidence of acute fracture. Larry Tobin MD Femur X-Ray 01/24/17 0000 Signed Impressions: Service Date/Time: Tuesday, January 24, 2017 20:11 - CONCLUSION: 1. Plate and screw fixation of left femoral shaft fracture. Deep Schmitz MD Chest X-Ray 01/24/17 0000 Signed Impressions: Service Date/Time: Tuesday, January 24, 2017 05:34 - CONCLUSION: 1. Cardiomegaly and findings of congestive heart failure. The findings have worsened when compared with the prior examination. Larry Tobin MD Ankle X-Ray 01/24/17 0000 Signed Impressions: Service Date/Time: Tuesday, January 24, 2017 05:32 - CONCLUSION: 1. Negative examination of the ankle. Larry Tobin MD Objective Remarks GENERAL: NAD and sitting in a chair SKIN: Warm and dry. HEAD: Normocephalic. EYES: No scleral icterus. No injection or drainage. NECK: Supple, trachea midline. No JVD or lymphadenopathy. CARDIOVASCULAR: Regular rate and rhythm without murmurs, gallops, or rubs. RESPIRATORY: Breath sounds equal bilaterally. No accessory muscle use. GASTROINTESTINAL: Abdomen soft, non-tender, nondistended. MUSCULOSKELETAL: No cyanosis, or edema. left hip repair; Drain in place BACK: Nontender without obvious deformity. No CVA tenderness. Procedures Open reduction internal fixation left femur fracture Implants used Synthes LCD plate with cortical screw and cable fixation 01/24/17 A/P Problem List: (1) Closed displaced spiral fracture of shaft of left femur ICD Code: S72.342A Status: Acute (2) Status post total hip replacement, left ICD Code: Z96.642 Status: Acute (3) Fall ICD Code: W19.XXXA Status: Acute (4) DM (diabetes mellitus) ICD Code: E11.9 Status: Chronic (5) Liver cirrhosis ICD Code: K74.60 Status: Chronic Assessment and Plan 71 year-old man with Left hip fracture: Status post open reduction internal fixation 01/24/17 and management per orthopedic surgery will continue current postop care. PT to treat and eval. Diabetes type 2: Resume Lantus 5 units at bedtime and continue insulin sliding scale History of C. difficile: Continue outpatient medication COPD: No exacerbation, DuoNeb when necessary and maintain oxygen saturation above 92%. DVT prophylaxis: Lovenox Problem Qualifiers (1) Fall: Qualified Code: W19.XXXA - Fall, initial encounter Dirk Rodrigues MD Jan 25, 2017 11:30
[2017-01-25] MEDS: ALUMINUM/MAGNESIUM/SIMETH 30 ML CUP PO PRN ×2 (14:25→20:13)
--- NOTE | 2017-01-25 14:59 | EKG ---
Date Performed: 01/24/2017 Time Performed: 17:34:22 PTAGE: 71 years EKG: SINUS ARRHYTHMIA LOW QRS VOLTAGE IN EXTREMITY LEADS Diffuse nonspecific ST-T change. When c ompared to previous tracing, the ST-T changes are more Prominant. Sinus arrhythmia is new. ABNORMAL E CG PREVIOUS TRACING : 01/08/2010 01.11 DOCTOR: Deejay Corona Interpretating Date/Time 01/25/2017 14:59:00
[2017-01-25] MEDS: INSULIN DETEMIR 100 UNITS/ML VIAL SQ SCH (20:14)
[2017-01-25] MEDS: MAGNESIUM HYDROXIDE SUSP 30 ML CUP PO PRN (20:14)
[2017-01-25] MEDS: ENOXAPARIN SODIUM 40 MG/0.4 ML SYRINGE SQ SCH (20:15)
[2017-01-26] VITALS (7 sets, daily range): BP systolic 105–132; BP diastolic 58–65; PULSE 91–96; RESP 16–20; TEMP 95.6–99; O2SAT 93–96
[2017-01-26] MEDS: HYDROmorphone HCL 2 MG TAB PO PRN ×4 (01:19→15:36)
[2017-01-26] MEDS: ALUMINUM/MAGNESIUM/SIMETH 30 ML CUP PO PRN ×2 (02:34→11:24)
[2017-01-26] MEDS: INSULIN ASPART SUPPLEMENTAL SCALE SQ SCH ×4 (06:26→20:41)
--- NOTE | 2017-01-26 07:30 | PD.ORT.PN ---
Subjective Post Op Day #: 2 Subjective Remarks Patient laying comfortably in bed and answering questions appropriately. Admits left thigh pain is well controlled at the moment. He has not tried walking yet. No new complaints Objective Vitals Vital Signs Date Time Temp Pulse Resp B/P Pulse Ox O2 Delivery O2 Flow Rate FiO2 01/26/17 04:00 98.4 92 20 115/65 94 01/26/17 00:00 99.0 96 20 116/58 96 01/25/17 21:46 94 Nasal Cannula 4.00 01/25/17 20:13 93 Nasal Cannula 3.00 01/25/17 20:00 98.8 98 17 132/62 93 01/25/17 16:45 98.6 95 17 120/65 94 01/25/17 12:00 97.3 92 17 130/72 95 01/25/17 09:27 93 Nasal Cannula 4.00 01/25/17 08:18 98.2 98 17 133/73 92 I/O 01/25/17 01/25/17 01/25/17 01/26/17 01/26/17 01/26/17 07:00 15:00 23:00 07:00 15:00 23:00 Intake Total 888 ml 600 ml 637 ml Output Total 690 ml 945 ml 0 ml 450 ml Balance 198 ml -345 ml 637 ml -450 ml Intake Oral 240 ml 600 ml IV Total 648 ml 637 ml Output Urine Total 650 ml 925 ml 450 ml Drainage Total 40 ml 20 ml 0 ml 0 ml # Bowel Movements 0 Result Diagram: 01/25/17 0706 01/25/17 0706 Imaging Last Impressions Knee X-Ray 01/24/17 0000 Signed Impressions: Service Date/Time: Tuesday, January 24, 2017 05:49 - CONCLUSION: 1. There is no evidence of acute fracture. Larry Tobin MD Hip and Pelvis X-Ray 01/24/17 0000 Signed Impressions: Service Date/Time: Tuesday, January 24, 2017 05:39 - CONCLUSION: 1. There is no evidence of acute fracture. Larry Tobin MD Femur X-Ray 01/24/17 0000 Signed Impressions: Service Date/Time: Tuesday, January 24, 2017 20:11 - CONCLUSION: 1. Plate and screw fixation of left femoral shaft fracture. Deep Schmitz MD Chest X-Ray 01/24/17 0000 Signed Impressions: Service Date/Time: Tuesday, January 24, 2017 05:34 - CONCLUSION: 1. Cardiomegaly and findings of congestive heart failure. The findings have worsened when compared with the prior examination. Larry Tobin MD Ankle X-Ray 01/24/17 0000 Signed Impressions: Service Date/Time: Tuesday, January 24, 2017 05:32 - CONCLUSION: 1. Negative examination of the ankle. Larry Tobin MD Procedures Open reduction internal fixation left femur fracture (01/24/17) Objective Remarks LLE: Dressing dry and intact. Brace in place. Drain in place. Tender to palpation with mild swelling around incision site. Appropriate range of motion expected post operatively. Freely able to move distal digits. No calf pain. Negative Ghazala's sign. Good cap refill. 2+ pedal pulses. Neurovascular intact. Assessment & Plan Ortho Post Op Day #: 2 Problem List: (1) Closed displaced spiral fracture of shaft of left femur (2) Status post total hip replacement, left (3) DM (diabetes mellitus) (4) Liver cirrhosis (5) Fall Assessment and Plan Open reduction internal fixation left femur fracture Ortho status stable POD #2. Progress rehab - toe touch left lower extremity Daily dressing changes. CM for HHC vs rehab Lovenox for DVT prophylaxis. Discharge planning - possibly d/c tomorrow if stable Mariann Perera Jan 26, 2017 07:30
[2017-01-26] MEDS: SODIUM CHLORIDE 0.9% FLUSH 10 ML FLUSH IV FLUSH SCH ×2 (09:00→20:45)
[2017-01-26] MEDS ORDERED: DOCUSATE SODIUM 100 MG CAP PO SCH (09:00)
[2017-01-26] MEDS: RIFAXIMIN 550 MG TAB PO SCH ×2 (09:49→20:40)
[2017-01-26] MEDS: MULTIVITAMINS/MINERALS THERAPEUTIC TAB PO SCH ×2 (09:49→20:40)
[2017-01-26] MEDS: SPIRONOLACTONE 100 MG TAB PO SCH (09:50)
--- NOTE | 2017-01-26 10:34 | HHI.PR ---
Subjective Remarks Follow-up left hip fracture 01/25/17-patient seen and examined; reports improvement of left hip pain. Currently afebrile. Denies any diarrhea. 01/26/17-patient seen and examined, stable and afebrile. Pain to left hip well- controlled. Objective Vitals Vital Signs Date Time Temp Pulse Resp B/P Pulse Ox O2 Delivery O2 Flow Rate FiO2 01/26/17 08:53 94 Nasal Cannula 2.00 01/26/17 04:00 98.4 92 20 115/65 94 01/26/17 00:00 99.0 96 20 116/58 96 01/25/17 21:46 94 Nasal Cannula 4.00 01/25/17 20:13 93 Nasal Cannula 3.00 01/25/17 20:00 98.8 98 17 132/62 93 01/25/17 16:45 98.6 95 17 120/65 94 01/25/17 12:00 97.3 92 17 130/72 95 I/O 01/25/17 01/25/17 01/25/17 01/26/17 01/26/17 01/26/17 07:00 15:00 23:00 07:00 15:00 23:00 Intake Total 888 ml 600 ml 637 ml 709 ml Output Total 690 ml 945 ml 0 ml 450 ml Balance 198 ml -345 ml 637 ml 259 ml Intake Oral 240 ml 600 ml IV Total 648 ml 637 ml 709 ml Output Urine Total 650 ml 925 ml 450 ml Drainage Total 40 ml 20 ml 0 ml 0 ml # Bowel Movements 0 Result Diagram: 01/25/17 0706 01/25/17 0706 Objective Remarks GENERAL: NAD and sitting in a chair SKIN: Warm and dry. HEAD: Normocephalic. EYES: No scleral icterus. No injection or drainage. NECK: Supple, trachea midline. No JVD or lymphadenopathy. CARDIOVASCULAR: Regular rate and rhythm without murmurs, gallops, or rubs. RESPIRATORY: Breath sounds equal bilaterally. No accessory muscle use. GASTROINTESTINAL: Abdomen soft, non-tender, nondistended. MUSCULOSKELETAL: No cyanosis, or edema. left hip repair; Drain in place BACK: Nontender without obvious deformity. No CVA tenderness. Procedures Open reduction internal fixation left femur fracture Implants used Synthes LCD plate with cortical screw and cable fixation 01/24/17 A/P Problem List: (1) Closed displaced spiral fracture of shaft of left femur ICD Code: S72.342A Status: Acute (2) Status post total hip replacement, left ICD Code: Z96.642 Status: Acute (3) Fall ICD Code: W19.XXXA Status: Acute (4) DM (diabetes mellitus) ICD Code: E11.9 Status: Chronic (5) Liver cirrhosis ICD Code: K74.60 Status: Chronic Assessment and Plan 71 year-old man with Left hip fracture: Status post open reduction internal fixation 01/24/17 and management per orthopedic surgery. Pain management accordingly and PT to treat and eval. Diabetes type 2: Continue Lantus 5 units at bedtime and insulin sliding scale History of C. difficile: Continue outpatient medication COPD: No exacerbation, DuoNeb when necessary and maintain oxygen saturation above 92%. DVT prophylaxis: Lovenox Discharge Planning Likely discharge to SNF 01/27/17 Problem Qualifiers (1) Fall: Qualified Code: W19.XXXA - Fall, initial encounter Dirk Rodrigues MD Jan 26, 2017 10:33
[2017-01-26] MEDS: LACTATED RINGER'S 1000 ML INJ 1,000 ML IV SCH ×2 (10:39→20:46)
[2017-01-26] MEDS: MAGNESIUM HYDROXIDE SUSP 30 ML CUP PO PRN (15:36)
[2017-01-26] MEDS ORDERED: DOCUSATE SODIUM 50 MG/SENNA 8.6 MG TAB PO SCH (20:00)
[2017-01-26] MEDS: ENOXAPARIN SODIUM 40 MG/0.4 ML SYRINGE SQ SCH (20:40)
[2017-01-26] MEDS: INSULIN DETEMIR 100 UNITS/ML VIAL SQ SCH (20:41)
[2017-01-27 00:48] VITALS: BP 114/62; PULSE 89; RESP 18; TEMP 96.2; O2SAT 95
[2017-01-27] MEDS: HYDROmorphone HCL 2 MG TAB PO PRN ×3 (01:22→14:47)
[2017-01-27] MEDS: INSULIN ASPART SUPPLEMENTAL SCALE SQ SCH ×2 (05:45→11:12)
--- NOTE | 2017-01-27 06:53 | PD.ORT.PN ---
Subjective Post Op Day #: 3 Subjective Remarks Patient laying comfortably in bed and answering questions appropriately. Admits left thigh pain is well controlled at the moment. He is moving around better. He expresses interested in home health care. No new complaints Objective Vitals Vital Signs Date Time Temp Pulse Resp B/P Pulse Ox O2 Delivery O2 Flow Rate FiO2 01/27/17 00:48 96.2 89 18 114/62 95 01/26/17 20:01 97.6 93 18 132/63 96 01/26/17 17:18 95.6 94 16 105/59 93 01/26/17 11:37 97.3 91 16 108/64 95 01/26/17 08:53 94 Nasal Cannula 2.00 01/26/17 08:26 98.2 93 17 123/64 94 I/O 01/26/17 01/26/17 01/26/17 01/27/17 01/27/17 01/27/17 07:00 15:00 23:00 07:00 15:00 23:00 Intake Total 709 ml 600 ml 480 ml Output Total 450 ml 675 ml 320 ml Balance 259 ml -75 ml 160 ml Intake Oral 600 ml 480 ml IV Total 709 ml Output Urine Total 450 ml 675 ml 320 ml Drainage Total 0 ml # Bowel Movements 2 Result Diagram: 01/25/17 0706 01/25/17 0706 Imaging Last Impressions Knee X-Ray 01/24/17 0000 Signed Impressions: Service Date/Time: Tuesday, January 24, 2017 05:49 - CONCLUSION: 1. There is no evidence of acute fracture. Larry Tobin MD Hip and Pelvis X-Ray 01/24/17 0000 Signed Impressions: Service Date/Time: Tuesday, January 24, 2017 05:39 - CONCLUSION: 1. There is no evidence of acute fracture. Larry Tobin MD Femur X-Ray 01/24/17 0000 Signed Impressions: Service Date/Time: Tuesday, January 24, 2017 20:11 - CONCLUSION: 1. Plate and screw fixation of left femoral shaft fracture. Deep Schmitz MD Chest X-Ray 01/24/17 0000 Signed Impressions: Service Date/Time: Tuesday, January 24, 2017 05:34 - CONCLUSION: 1. Cardiomegaly and findings of congestive heart failure. The findings have worsened when compared with the prior examination. Larry Tobin MD Ankle X-Ray 01/24/17 0000 Signed Impressions: Service Date/Time: Tuesday, January 24, 2017 05:32 - CONCLUSION: 1. Negative examination of the ankle. Larry Tobin MD Procedures Open reduction internal fixation left femur fracture (01/24/17) Objective Remarks LLE: Dressing dry and intact. Brace in place. Tender to palpation with mild swelling around incision site. Appropriate range of motion expected post operatively. Freely able to move distal digits. No calf pain. Negative Ghazala's sign. Good cap refill. 2+ pedal pulses. Neurovascular intact. Assessment & Plan Ortho Post Op Day #: 3 Problem List: (1) Closed displaced spiral fracture of shaft of left femur (2) Status post total hip replacement, left (3) DM (diabetes mellitus) (4) Liver cirrhosis (5) Fall Assessment and Plan Open reduction internal fixation left femur fracture Ortho status stable POD #3. Progress rehab - toe touch left lower extremity Daily dressing changes. CM for HHC vs rehab Lovenox for DVT prophylaxis. Clear for discharge from an orthopedic standpoint, discharge when medically stable Mariann Perera Jan 27, 2017 06:53
[2017-01-27] MEDS ORDERED: MISC-163 (06:56)
[2017-01-27] MEDS ORDERED: WALKER/ADULT/FO1 MIS (06:56)
[2017-01-27 07:43] LABS: BICARBONATE 28.5 MEQ/L (21.0-32.0); POTASSIUM 4.8 MEQ/L (3.5-5.1)
[2017-01-27 08:00] VITALS: BP 109/57; PULSE 88; RESP 18; TEMP 96.2; O2SAT 92
[2017-01-27] MEDS: MULTIVITAMINS/MINERALS THERAPEUTIC TAB PO SCH (08:02)
[2017-01-27] MEDS: SPIRONOLACTONE 100 MG TAB PO SCH (08:02)
[2017-01-27] MEDS: RIFAXIMIN 550 MG TAB PO SCH (08:02)
[2017-01-27] MEDS: SODIUM CHLORIDE 0.9% FLUSH 10 ML FLUSH IV FLUSH SCH (08:03)
[2017-01-27 08:10] VITALS: O2SAT 92
[2017-01-27] MEDS ORDERED: LACTULOSE SYRUP 20 GM/30 ML CUP PO SCH (09:00)
--- NOTE | 2017-01-27 10:25 | HHI.PR ---
Subjective Remarks Follow-up left hip fracture 01/25/17-patient seen and examined; reports improvement of left hip pain. Currently afebrile. Denies any diarrhea. 01/26/17-patient seen and examined, stable and afebrile. Pain to left hip well- controlled. 01/27/17-patient seen and examined, left hip pain well controlled and no acute event overnight. Patient is not agreeable for discharge to rehabilitation. Objective Vitals Vital Signs Date Time Temp Pulse Resp B/P Pulse Ox O2 Delivery O2 Flow Rate FiO2 01/27/17 08:00 96.2 88 18 109/57 92 01/27/17 00:48 96.2 89 18 114/62 95 01/26/17 20:01 97.6 93 18 132/63 96 01/26/17 17:18 95.6 94 16 105/59 93 01/26/17 11:37 97.3 91 16 108/64 95 I/O 01/26/17 01/26/17 01/26/17 01/27/17 01/27/17 01/27/17 07:00 15:00 23:00 07:00 15:00 23:00 Intake Total 709 ml 600 ml 480 ml 120 ml Output Total 450 ml 675 ml 320 ml 200 ml Balance 259 ml -75 ml 160 ml -80 ml Intake Oral 600 ml 480 ml 120 ml IV Total 709 ml Output Urine Total 450 ml 675 ml 320 ml 200 ml Drainage Total 0 ml # Bowel Movements 2 1 Result Diagram: 01/25/17 0706 01/27/17 0657 Imaging Last Impressions Knee X-Ray 01/24/17 0000 Signed Impressions: Service Date/Time: Tuesday, January 24, 2017 05:49 - CONCLUSION: 1. There is no evidence of acute fracture. Larry Tobin MD Hip and Pelvis X-Ray 01/24/17 0000 Signed Impressions: Service Date/Time: Tuesday, January 24, 2017 05:39 - CONCLUSION: 1. There is no evidence of acute fracture. Larry Tobin MD Femur X-Ray 01/24/17 0000 Signed Impressions: Service Date/Time: Tuesday, January 24, 2017 20:11 - CONCLUSION: 1. Plate and screw fixation of left femoral shaft fracture. Deep Schmitz MD Chest X-Ray 01/24/17 0000 Signed Impressions: Service Date/Time: Tuesday, January 24, 2017 05:34 - CONCLUSION: 1. Cardiomegaly and findings of congestive heart failure. The findings have worsened when compared with the prior examination. Larry Tobin MD Ankle X-Ray 01/24/17 0000 Signed Impressions: Service Date/Time: Tuesday, January 24, 2017 05:32 - CONCLUSION: 1. Negative examination of the ankle. Larry Tobin MD Objective Remarks GENERAL: NAD and sitting in a chair SKIN: Warm and dry. HEAD: Normocephalic. EYES: No scleral icterus. No injection or drainage. NECK: Supple, trachea midline. No JVD or lymphadenopathy. CARDIOVASCULAR: Regular rate and rhythm without murmurs, gallops, or rubs. RESPIRATORY: Breath sounds equal bilaterally. No accessory muscle use. GASTROINTESTINAL: Abdomen soft, non-tender, nondistended. MUSCULOSKELETAL: No cyanosis, or edema. left hip repair; Drain in place BACK: Nontender without obvious deformity. No CVA tenderness. Procedures Open reduction internal fixation left femur fracture Implants used Synthes LCD plate with cortical screw and cable fixation 01/24/17 A/P Problem List: (1) Closed displaced spiral fracture of shaft of left femur ICD Code: S72.342A Status: Acute (2) Status post total hip replacement, left ICD Code: Z96.642 Status: Acute (3) Fall ICD Code: W19.XXXA Status: Acute (4) DM (diabetes mellitus) ICD Code: E11.9 Status: Chronic (5) Liver cirrhosis ICD Code: K74.60 Status: Chronic Assessment and Plan 71 year-old man with Left hip fracture: Stable. Status post open reduction internal fixation and management per orthopedic surgery. Pain management accordingly and PT to treat and eval. Diabetes type 2: Continue Lantus 5 units at bedtime and insulin sliding scale History of C. difficile: Continue outpatient medication COPD: No exacerbation, DuoNeb when necessary and maintain oxygen saturation above 92%. DVT prophylaxis: Lovenox Discharge Planning discharge to SNF today 01/27/17 Problem Qualifiers (1) Fall: Qualified Code: W19.XXXA - Fall, initial encounter Dirk Rodrigues MD Jan 27, 2017 10:25
--- NOTE | 2017-01-27 10:27 | HHI.DS ---
Discharge Summary Admission Date Jan 24, 2017 at 06:37 Discharge Date: Jan 27, 2017 Admitting Diagnosis Closed Left Distal Femur Fracture, Fall (1) Closed displaced spiral fracture of shaft of left femur ICD Code: S72.342A (2) Status post total hip replacement, left ICD Code: Z96.642 (3) Fall ICD Code: W19.XXXA (4) DM (diabetes mellitus) ICD Code: E11.9 (5) Liver cirrhosis ICD Code: K74.60 Procedures Open reduction internal fixation left femur fracture Implants used Synthes LCD plate with cortical screw and cable fixation 01/24/17 Brief History - From Admission 71-year-old male with a history of diabetes type 2 was brought to the ED by EMS for evaluation of an acute onset of left hip pain status post mechanical fall. Patient states sometimes around 4 AM this morning, as he was getting out of bed he got tangled in his bed sheets and twisted his leg and overall way, falling onto a chair by the bedside. Denies any head trauma or loss of consciousness. However immediately felt severe left hip pain rated 10/ 10 intensity. Patient denies putting any weights at a time on his left lower extremity. The ED, Left femur x-ray shows a spiral fracture of the distal left femur about 16 cm distal to the intramedullary portion of the artificial left hip for which orthopedic surgery has been consulted. Patient has no chest pain , shortness of breath. He denies any GI bleed. CBC/BMP: 01/25/17 0706 01/27/17 0657 Significant Findings Laboratory Tests Test 01/25/17 01/27/17 07:06 06:57 Red Blood Count 3.69 MIL/MM3 (4.50-5.90) Hemoglobin 11.2 GM/DL (13.0-17.0) Hematocrit 32.8 % (39.0-51.0) Neutrophils (%) (Auto) 83.7 % (16.0-70.0) Lymphocytes (%) (Auto) 6.0 % (9.0-44.0) Monocytes (%) (Auto) 9.2 % (0.0-8.0) Neutrophils # (Auto) 8.9 TH/MM3 (1.8-7.7) Lymphocytes # (Auto) 0.6 TH/MM3 (1.0-4.8) Monocytes # (Auto) 1.0 TH/MM3 (0-0.9) Sodium Level 133 MEQ/L 134 MEQ/L (136-145) (136-145) Potassium Level 5.2 MEQ/L (3.5-5.1) Blood Urea Nitrogen 21 MG/DL (7-18) 28 MG/DL (7-18) Creatinine 1.44 MG/DL 1.40 MG/DL (0.60-1.30) (0.60-1.30) Estimat Glomerular Filtration 48 ML/MIN (>89) 50 ML/MIN (>89) Rate Random Glucose 173 MG/DL 152 MG/DL (74-106) (74-106) Total Bilirubin 1.1 MG/DL (0.2-1.0) Aspartate Amino Transf 46 U/L (15-37) (AST/SGOT) Alkaline Phosphatase 139 U/L (45-117) Albumin 3.3 GM/DL (3.4-5.0) Imaging Last Impressions Knee X-Ray 01/24/17 0000 Signed Impressions: Service Date/Time: Tuesday, January 24, 2017 05:49 - CONCLUSION: 1. There is no evidence of acute fracture. Larry Tobin MD Hip and Pelvis X-Ray 01/24/17 0000 Signed Impressions: Service Date/Time: Tuesday, January 24, 2017 05:39 - CONCLUSION: 1. There is no evidence of acute fracture. Larry Tobin MD Femur X-Ray 01/24/17 0000 Signed Impressions: Service Date/Time: Tuesday, January 24, 2017 20:11 - CONCLUSION: 1. Plate and screw fixation of left femoral shaft fracture. Deep Schmitz MD Chest X-Ray 01/24/17 0000 Signed Impressions: Service Date/Time: Tuesday, January 24, 2017 05:34 - CONCLUSION: 1. Cardiomegaly and findings of congestive heart failure. The findings have worsened when compared with the prior examination. Larry Tobin MD Ankle X-Ray 01/24/17 0000 Signed Impressions: Service Date/Time: Tuesday, January 24, 2017 05:32 - CONCLUSION: 1. Negative examination of the ankle. Larry Tobin MD PE at Discharge GENERAL: NAD and sitting in a chair SKIN: Warm and dry. HEAD: Normocephalic. EYES: No scleral icterus. No injection or drainage. NECK: Supple, trachea midline. No JVD or lymphadenopathy. CARDIOVASCULAR: Regular rate and rhythm without murmurs, gallops, or rubs. RESPIRATORY: Breath sounds equal bilaterally. No accessory muscle use. GASTROINTESTINAL: Abdomen soft, non-tender, nondistended. MUSCULOSKELETAL: No cyanosis, or edema. left hip repair; Drain in place BACK: Nontender without obvious deformity. No CVA tenderness. Hospital Course Patient was admitted secondary to left hip fracture for which orthopedic surgery was consulted and he underwent open reduction internal fixation on 01/24. Pain management was provided accordingly and physical therapy was consulted. He was initially placed on sliding scale insulin however home regimen of Lantus was resumed and patient remained normoglycemic throughout hospitalization. DVT and GI prophylaxis were provided. Treatment for other chronic medical conditions were continued. Prior to discharge, patient condition improved. Duration of DVT prophylaxis per orthopedic surgery Pt Condition on Discharge: Stable Discharge Disposition: Discharge to SNF Discharge Time: > 30 minutes Discharge Instructions DIET: Follow Instructions for: Diabetic Diet Activities you can perform: Toe Touch Weight Bearing Activities to Avoid: Lifting/Bending Follow up Referrals: Orthopedics - 2 Weeks @ [facility] with Deejay Garcia MD PCP Follow-up - 2-3 Days New Medications: 3-in-1 Bedside Toilet (3-in-1 Bedside Toilet) 1 Mis Mis 1 EA .ROUTE DIRECTED #1 EA Walker/Adult/Folding (Walker/Adult/Folding) 1 Mis Mis 1 EA .ROUTE DIRECTED Pain #1 Ref 0 EA Continued Medications: Albuterol 18 GM Inh (Ventolin Hfa 18 GM Inh) 90 Mcg/Act Aer 2 PUFF INH Q6H PRN SHORTNESS OF BREATH #1 Ref 0 INHALER Cholecalciferol (Vitamin D3) 1,000 Unit Chew 2000 UNITS CHEW DAILY Nutritional Supplement #1 Ref 0 BOTTLE Dipyridamole (Dipyridamole) 25 Mg Tab 100 MG PO DAILY Prevent Blood Clot #60 Ref 0 TAB Fluticasone Nasal [place] (Fluticasone Nasal [place]) 50 Mcg/Act Naspr 50 MCG EACH NARE DAILY 50 mcg/spray Allergy Management #1 Ref 0 BOTTLE Gabapentin (Gabapentin) 400 Mg Cap 800 CAP PO HS #30 Ref 0 CAP Insulin Glargine Inj (Lantus Inj) 1,000 Unit/10 Ml Vial 5 UNITS SQ HS Blood Sugar Management Ref 0 VIAL Lactobacillus (Acidophilus Probiotic) 100 Mg Cap 1 CAP PO DAILY Lactulose (Encephalopathy) Liq (Lactulose Liq) 19 Gm/15 Ml Soln 10 GM PO DAILY Magnesium Oxide (Magnesium Oxide) 400 Mg Cap 1 CAP PO TID Methocarbamol (Methocarbamol) 500 Mg Tab 500 MG PO TID Muscle Spasm #90 Ref 0 TAB Omeprazole (Omeprazole) 20 Mg Tab 20 MG PO DAILY #30 Ref 0 TAB Ranitidine (Zantac) 300 Mg Tab 300 MG PO HS Ref 0 TAB Rifaximin (Xifaxan) 550 Mg Tab 550 MG PO Q12HR Hepatic encephalopathy #60 Ref 0 TAB Spironolactone (Spironolactone) 100 Mg Tab 100 MG PO DAILY #30 Ref 0 TAB Thiamine (Thiamine) 100 Mg Tab 100 MG PO DAILY Nutritional Supplement Ref 0 TAB Discontinued Medications: Diphenhydramine (Benadryl Allergy) 25 Mg Tab 75 MG PO HS PRN SLEEP Ref 0 TAB Dirk Rodrigues MD Jan 27, 2017 10:27
[2017-01-27] MEDS: LACTATED RINGER'S 1000 ML INJ 1,000 ML IV SCH (11:39)
--- NOTE | 2017-01-27 11:46 | HHI.FF ---
Face to Face Verification Diagnosis: (1) Closed displaced spiral fracture of shaft of left femur (2) DM (diabetes mellitus) Physical Therapy Order: Evaluate and Treat Home Health Nursing Order: Signs/symptoms of disease process Wound care and dressing changes I have seen patient Suleiman Paul Jr Harshad on 01/27/17. My clinical findings support the need for the requested home health care services because: Ltd mobility - disease progression Deconditioned w/ increased weakness I certify that my clinical findings support that this patient is homebound because: Post-op weakness Poor cardiac reserve Dirk Rodrigues MD Jan 27, 2017 11:46
[2017-01-27 12:00] VITALS: BP 127/58; PULSE 87; RESP 18; TEMP 98; O2SAT 92
[2017-01-27] MEDS ORDERED: ENOX40P SQ (13:43)
[2017-01-27] MEDS ORDERED: PERC5TAB12 PO (14:31)
== END 2017-01-27 14:54 | disposition home health service (06) | DRG 482 ==
LOC: NEPC 05:17 → NEDA 06:37 → N06B 08:31
PROVIDERS: ADMIT Hospitalist; ATTEND Hospitalist
PROC: 0QSC04Z Reposition Left Lower Femur with Internal Fixation Device, Open Approach (ICD-10-PCS; principal; 2017-01-24 18:01)
DX: S72.342A Displaced spiral fracture of shaft of left femur, initial encounter for closed fracture (principal); E11.40 Type 2 diabetes mellitus with diabetic neuropathy, unspecified; K74.60 Unspecified cirrhosis of liver; J44.9 Chronic obstructive pulmonary disease, unspecified; W06.XXXA Fall from bed, initial encounter; Z96.642 Presence of left artificial hip joint; Z79.4 Long term (current) use of insulin; E78.00 Pure hypercholesterolemia, unspecified; D64.9 Anemia, unspecified; I25.10 Atherosclerotic heart disease of native coronary artery without angina pectoris; K21.9 Gastro-esophageal reflux disease without esophagitis; K29.70 Gastritis, unspecified, without bleeding; F41.9 Anxiety disorder, unspecified; G47.30 Sleep apnea, unspecified; G89.29 Other chronic pain; Y92.013 Bedroom of single-family (private) house as the place of occurrence of the external cause; Z86.73 Personal history of transient ischemic attack (TIA), and cerebral infarction without residual deficits
CPT/HCPCS: 71010; 73502; 73552; 73560; 73610; 76000; 80048; 80053; 82948; 85025; 85610; 85730; 93005; 94150; C1713; J0690; J1580; J1650; J1815; J2175; J2270; J2370; J2405; J3010; J7030; J7120; L1830

== ENCOUNTER 2017-03-13 11:53 | Inpatient (IN) | payer MEDICARE, OTHER ==
[~2017-03-13] VITALS: Ht 182.9 cm; Wt 81.6 kg
[~2017-03-13 11:53] MED LIST changes: +ACID100C PO; -ALBU8I INH; -CENTTAB9 PO; +CHOL100025 CHEW; -DIPH2%T PO; +DIPY25TA25 PO; +ENOX40P SQ; -FURO20 PO; -GABA400 PO; +GABA400C5 PO; -MAGN400 PO; +MAGN400C2 PO; +METH500T3 PO; -METHO500 PO; +MISC-163; +PERC5TAB12 PO; -PROB1CAP12 PO; -RANI150 PO; -RIFA550 PO; +SPIR100T PO; -TRAZ100T4 PO; +VENTAER INH; -VITA200017 PO; +WALKER/ADULT/FO1 MIS; +XIFA550T4 PO; +ZANT300T PO; -[UNRECOGNIZED DRUG - CODE] PO
[2017-03-14 08:45] VITALS: BP 142/72; PULSE 85; RESP 18; TEMP 97.7; O2SAT 97
[2017-03-14 09:00] VITALS: PULSE 85
[2017-03-14] MEDS ORDERED: ePHEDrine/NS 25 MG/5 ML SYR IV ONE (09:55)
[2017-03-14] MEDS ORDERED: NEOSTIGMINE 3 MG/3 ML SYR IV ONE (09:55)
[2017-03-14] MEDS ORDERED: PROPOFOL 200 MG/20 ML AMP IV ONE (09:55)
[2017-03-14] MEDS ORDERED: ONDANSETRON HCL 4 MG/2 ML VIAL IV PUSH ONE (09:56)
[2017-03-14] MEDS ORDERED: NORMOSOL R INJ 2,000 ML IV ONE (09:56)
[2017-03-14] MEDS ORDERED: PHENYLEPH/NS 1000 MCG/10 ML SYR IV ONE (09:56)
[2017-03-14] MEDS ORDERED: ceFAZolin 2 GM PREMIX 50 ML IV SCH (10:00)
[2017-03-14] MEDS ORDERED: CHLORHEXIDINE GLUCONATE 4% SOLN 120 ML BTL TOPICAL SCH (10:00)
[2017-03-14] MEDS ORDERED: VANCOMYCIN 1000 MG/NS 250 ML (for <70 kg) IV SCH ×2 (10:00)
[2017-03-14 10:02] LABS: HEMATOCRIT 33.2 % (39.0-51.0); MEAN CELL VOLUME 82.3 FL (80.0-100.0); MEAN CORPUSCULAR HEMOGLOBIN 26.2 PG (27.0-34.0); MEAN CORPUSCULAR HGB CONC 31.8 % (32.0-36.0); PLATELET COUNT 288 TH/MM3 (150-450); RED BLOOD COUNT 4.04 MIL/MM3 (4.50-5.90); RED CELL DISTRIBUTION WIDTH 16.9 % (11.6-17.2); REVIEW FLAG FINAL
[2017-03-14 10:08] LABS: INTERNATIONAL NORMALIZED RATIO 1.1 RATIO; PROTHROMBIN TIME - PATIENT 12.6 SEC (9.8-11.6)
[2017-03-14 10:14] LABS: BICARBONATE 25.9 MEQ/L (21.0-32.0); POTASSIUM 4.6 MEQ/L (3.5-5.1)
[2017-03-14] MEDS ORDERED: GENTAMICIN SULFATE 80 MG/2 ML VIAL ONE ×2 (10:47→12:36)
[2017-03-14] MEDS ORDERED: fentaNYL CITRATE 250 MCG/5 ML AMP ONE (12:15)
--- NOTE | 2017-03-14 13:50 | PD.OP ---
cc: Deejay Garcia MD Operative Report Date of Surgery: Mar 14, 2017 Preoperative Diagnosis: (1) Mechanical complic of internal orthopedic device, implant or graft (2) Closed displaced spiral fracture of shaft of left femur (3) Status post total hip replacement, left Postoperative Diagnosis: (1) Mechanical complic of internal orthopedic device, implant or graft (2) Closed displaced spiral fracture of shaft of left femur (3) Status post total hip replacement, left Procedure: Revision open reduction internal fixation left femur fracture Implants: Synthes retrograde nail Anesthesia: Gen. Surgeon: Deejay Garcia Head Tennis Professional(s): Mariann Perera PA-C ([place]) The surgical procedure was assisted by my physician's recreation assistant. Her presence was necessary throughout the case for manipulation and positioning of the surgical extremity. My PA was assisting me throughout the duration of this procedure. The skill set of the physician recreation assistant was medically necessary to complete this procedure. During the surgical case the salesperson surgical appliances was working at the back table and the physician recreation assistant was directly assisting me. Operation and Findings: Indications: This 71-year-old male is approximately 6 weeks postoperative ORIF of a left femur fracture. The patient was treated with a long plate. This did require cerclage cables around a total hip prosthesis on the proximal aspect. Patient has been followed on an outpatient basis. He has had progressive loss of reduction. His last visit he was noted to have a flexion deformity at the fracture site. There was associated pain and limited knee mobility. Recommendations are therefore given for revision of the internal fixation. Procedure and findings: The patient was taken to the operative suite and after undergoing an adequate level of general anesthesia was kept supine on the operating table. Preoperative antibiotics consisted of Ancef 2 g IV. The right lower extremity was noted to have a well-healed surgical incision with mild swelling about the distal thigh. He lacked approximately 30 of knee extension. Extremity was then prepped and draped in usual sterile fashion with alcohol, Hibiclens and ChloraPrep. Part of the previous incision was utilized. Beginning distally the incision was carried proximally to the mid thigh region. This was carried down to skin and subcutaneous tense tissue with a knife. The iliotibial band was identified and split longitudinally. The vastus lateralis was dissected from the posterior aspect to the femur. Scar tissue was encountered and released. Fracture site was identified. There was early callus and scar tissue. Fracture site was curetted and rongeured of all excess tissue. There was a small amount of cloudy fluid present. This was cultured and a stat Gram stain was sent results of which revealed rare WBC and no organisms. The distal four and 3 screws proximal to the fracture site were removed. Once the fracture site have been taken down and mobile it was held reduced. This was assisted by shifting the plate anteriorly. A 3 cm incision was made from the inferior pole of the patella. This was carried down through skin and subcutaneous tense tissue with a knife. The patellar peritenon was incised. A trans-patellar tendon approach was made. This was split longitudinally. The fat pad was partially incised and an entry point selected and the intercondylar notch. A threaded guidepin was advanced. The position was checked in both the AP and lateral planes with the C-arm. This was subsequently overdrilled. A guidepin was advanced to the distal aspect of the femur across the fracture site to the distal aspect of the femoral stem. It was brought back retrograde and a measurement made for the length of the planned intramedullary gilles. The femur was then sequentially reamed up to size 13. A 12X 240mm retrograde nail was then impacted in the place. Prior to this a cerclage cable was placed along the distal aspect of the plate incorporating it into an eyelet placed in the plate. Utilizing an outrigger device a lateral threaded guidepin was advanced across the femoral condyles. A measurement was made. The lateral cortex was overdrilled. The appropriate length helical blade was then seated. The locking mechanism was placed distally. A freehand technique was utilized on the proximal interlocking from an anterior to posterior direction. This was done under fluoroscopic guidance. 2 locking screws were then placed into the distal aspect of the plate. The position of the fracture reduction and placement of the internal fixation were checked in both the AP and lateral planes with the C-arm. The wound was again thoroughly irrigated. Bone obtained from debriding the fracture site was placed back into the defect. Norian bone filler was then injected to the fracture site. A Hemovac drain was left in place. Incision was closed in layers utilizing 0 Vicryl suture on the vastus lateralis fascia and iliotibial band, 2-0 Vicryl suture and the subcutaneous tense tissue and pola on the skin. The anterior knee incision was closed in a similar fashion. Sterile dressings were applied, the patient was awakened, transferred to the hospital bed and taken to the recovery room in stable condition. Estimated blood loss: 100 cc Complications: None Tourniquet time: 126 minutes Deejay Garcia MD Mar 14, 2017 13:50
[2017-03-14] MEDS: LACTATED RINGER'S 1000 ML INJ 1,000 ML IV SCH (13:51)
[2017-03-14] MEDS ORDERED: LACTULOSE SYRUP 20 GM/30 ML CUP PO PRN (14:00)
[2017-03-14] MEDS ORDERED: MORPHINE SULFATE 30 MG/30 ML PCA IV SCH (14:00)
[2017-03-14] MEDS ORDERED: MORPHINE SULFATE 8 MG/ML INJ IV PUSH PRN (14:00)
[2017-03-14] MEDS ORDERED: BISACODYL 10 MG SUPP RECTAL PRN (14:00)
[2017-03-14] MEDS ORDERED: SODIUM CHLORIDE 0.9% FLUSH 10 ML FLUSH IV FLUSH PRN (14:00)
[2017-03-14] MEDS ORDERED: HYDROmorphone HCL 2 MG TAB PO PRN (14:00)
[2017-03-14] MEDS ORDERED: diphenhydrAMINE HCL 25 MG CAP PO PRN (14:00)
[2017-03-14] MEDS ORDERED: ALUMINUM/MAGNESIUM/SIMETH 30 ML CUP PO PRN (14:00)
[2017-03-14] MEDS ORDERED: MISCELLANEOUS PHARMACY INFORMATION XX ONE (14:00)
[2017-03-14] MEDS ORDERED: POVIDONE IODINE 10% SOLN 118 ML BOTTLE TOPICAL PRN (14:00)
[2017-03-14] MEDS ORDERED: SENNOSIDES 8.6 MG TAB PO PRN (14:00)
[2017-03-14] MEDS ORDERED: TEMAZEPAM 15 MG CAP PO PRN (14:00)
[2017-03-14] MEDS ORDERED: ONDANSETRON HCL 4 MG/2 ML VIAL IVP PRN (14:00)
[2017-03-14] MEDS ORDERED: NALOXONE HCL 0.4 MG/ML AMP IV PRN (14:00)
[2017-03-14] MEDS ORDERED: Post-op Orders (for Pharmacy) MISC XX ONE (14:00)
[2017-03-14] MEDS ORDERED: HYDROmorphone HCL 4 MG TAB PO PRN (14:00)
--- NOTE | 2017-03-14 14:07 | RADRPT ---
EXAM DATE/TIME: 03/14/2017 13:04 [facility] COMPARISON: FEMUR LEFT (AP & LAT/2VWS), January 24, 2017, 20:11. INDICATIONS : ORIF lt femur. MEDICAL HISTORY : None. SURGICAL HISTORY : ORIF lt femur. ENCOUNTER: Initial ACUITY: 1 day PAIN SCORE: Non-responsive. LOCATION: Left Femur FINDINGS: 5 intraoperative images of the left femur. Distal femoral shaft fracture is identified. Distal intram edullary gilles and lateral internal fixation plate noted. CONCLUSION: Intraoperative spot images showing distal femur fracture and internal fixation hardware. Anselmo Powers MD on March 14, 2017 at 14:04 Board Certified Radiologist. This report was verified electronically.
--- NOTE | 2017-03-14 14:43 | EKG ---
Date Performed: 03/14/2017 Time Performed: 08:50:12 PTAGE: 71 years EKG: Poor initial anterior forces which may be a normal variant Diffuse nonspecific ST-T wave ch mitra Since PREVIOUS TRACING 01/24/2017, there is loss of R force in V2. This may be due to lead quinton cement. ST-T changes are about the same. PREVIOUS TRACIN01/24/2017 17.34 DOCTOR: Deejay Corona Interpretating Date/Time 03/14/2017 14:42:02
--- NOTE | 2017-03-14 15:14 | PD.CONS ---
HPI Service [facility] Hospitalists Consult Requested By Orthopedic surgery Reason for Consult Medical management Primary Care Physician [facility] Diagnoses: History of Present Illness 71-year-old male with a history of diabetes type 2, status post recent open reduction internal fixations left knee 01/24/17 was taken to the OR for revision of internal fixation secondary to observe flexion deformity at fracture site and increasing left knee pain as well as limited knee mobility. patient was seen in PACU; he has no complaint of chest pain or shortness of breath. Vitals stable Review of Systems Except as stated in HPI: all other systems reviewed are Neg Past Family Social History Allergies: Coded Allergies: Acetaminophen (Verified Allergy, Severe, LIVER DISEASE, 03/14/17) Tramadol (Verified Allergy, Mild, DUE TO LIVER DISEASE, 03/14/17) INFO OBTAINED FROM . PT IS TAKING TRAMADOL Codeine (Verified Allergy, Unknown, 03/14/17) NOT ALLERGIC ACCORDING TO Diclofenac (Verified Allergy, Unknown, UBNKNOWN REACTION, 03/14/17) Salsalate (Verified Allergy, Unknown, DUE TO KIDNEY FUNCTION, 02/02/16) *MDRO Multi-Drug Resistant Organism (Verified Adverse Reaction, Unknown, ) MRSA (hand wound) - 12/18/08 Past Medical History DM Liver cirrhosis COPD Chronic pain Past Surgical History Recent open reduction internal fixations left knee 01/24/17 Left hip surgery March 2015 DOUBLE HERNIA REPAIR, PARACENTHESIS X 2 HARDWARE LEFT HIP LEFT CAROTID ENDARTECTOMY) RIGHT THUMB) Family History Denies any family history of diabetes type 2 Social History Alcohol Use: No Tobacco Use: No Substance Use: No Physical Exam Vital Signs Vital Signs Date Time Temp Pulse Resp B/P Pulse Ox O2 Delivery O2 Flow Rate FiO2 03/14/17 14:54 16 03/14/17 14:16 98.3 93 20 111/86 97 Simple Mask 6 03/14/17 09:00 85 03/14/17 08:45 97.7 85 18 142/72 97 Physical Exam GENERAL: This is a well-nourished, well-developed patient, in no apparent distress. SKIN: No rashes, ecchymoses or lesions. Cool and dry. HEAD: Atraumatic. Normocephalic. No temporal or scalp tenderness. EYES: Pupils equal round and reactive. Extraocular motions intact. No scleral icterus. No injection or drainage. ENT: Nose without bleeding, purulent drainage or septal hematoma. Throat without erythema, tonsillar hypertrophy or exudate. Uvula midline. Airway patent. NECK: Trachea midline. No JVD or lymphadenopathy. Supple, nontender, no meningeal signs. CARDIOVASCULAR: Regular rate and rhythm without murmurs, gallops, or rubs. RESPIRATORY: Clear to auscultation. Breath sounds equal bilaterally. No wheezes , rales, or rhonchi. GASTROINTESTINAL: Abdomen soft, non-tender, nondistended. No hepato-splenomegaly , or palpable masses. No guarding. MUSCULOSKELETAL: Extremities without clubbing, cyanosis, or edema. dressing over left knee; drain in place NEUROLOGICAL: Awake and alert. Cranial nerves II through XII intact. Motor and sensory grossly within normal limits. Five out of 5 muscle strength in all muscle groups. Normal speech. Laboratory Laboratory Tests Test 03/14/17 03/14/17 09:00 09:50 Blood Type O POSITIVE Antibody Screen NEGATIVE White Blood Count 8.0 Red Blood Count 4.04 Hemoglobin 10.6 Hematocrit 33.2 Mean Corpuscular Volume 82.3 Mean Corpuscular Hemoglobin 26.2 Mean Corpuscular Hemoglobin 31.8 Concent Red Cell Distribution Width 16.9 Platelet Count 288 Mean Platelet Volume 7.9 Prothrombin Time 12.6 Prothromb Time International 1.1 Ratio Sodium Level 137 Potassium Level 4.6 Chloride Level 105 Carbon Dioxide Level 25.9 Anion Gap 6 Blood Urea Nitrogen 16 Creatinine 1.18 Estimat Glomerular Filtration 61 Rate Random Glucose 105 Calcium Level 9.0 Date/Time Procedure Status Source Growth 03/14/17 11:28 Gram Stain - Final Resulted Wound Leg 03/14/17 11:28 Wound Culture Resulted Wound Leg Pending 03/14/17 11:28 Fungal Smear Received Wound Leg Pending 03/14/17 11:28 Fungal Culture Received Wound Leg Pending 03/14/17 11:28 Acid Fast Stain Received Wound Leg Pending 03/14/17 11:28 Mycobacterial Culture Received Wound Leg Pending Result Diagram: 03/14/17 0950 03/14/17 0950 Imaging Last Impressions Femur X-Ray 03/14/17 0000 Signed Impressions: Service Date/Time: Tuesday, March 14, 2017 13:04 - CONCLUSION: Intraoperative spot images showing distal femur fracture and internal fixation hardware. Anselmo Powers MD Assessment and Plan Assessment and Plan 71-year-old man with Revision open reduction internal fixation left femur fracture Management per orthopedic surgery Continue current postop care with pain management, postop antibiotics, incentive spirometry at bedside DVT prophylaxis per orthopedic surgery PT consult to treat and eval Diabetes type 2: Resume Levemir 5 units at bedtime, start insulin sliding scale Diuretic neuropathy: Resume Neurontin COPD: No exacerbation, DuoNeb when necessary and maintain oxygen saturation above 92%. DVT prophylaxis: Xarelto. Thank you for this consultation Code Status Full code Discussed Condition With patient Dirk Rodrigues MD Mar 14, 2017 15:14
[2017-03-14] MEDS ORDERED: RESP: ALBUTEROL 2.5 MG/IPRATROPIUM 0.5 MG NEB (PRN) NEB (15:15)
[2017-03-14] MEDS ORDERED: ENALAPRILAT 1.25 MG/ML VIAL IV PUSH PRN (15:15)
[2017-03-14] MEDS ORDERED: DO NOT ADM ANY ANTICOAGULANT DRUGS PRN (15:15)
[2017-03-14] MEDS ORDERED: DEXTROSE 50% IN WATER 50 ML VIAL(D50) IV PRN (15:30)
[2017-03-14] MEDS ORDERED: GLUCAGON 1 MG/ML VIAL OTHER PRN (15:30)
[2017-03-14 16:00] VITALS: BP 121/87; PULSE 88; RESP 15; TEMP 97.2; O2SAT 94
[2017-03-14] MEDS: INSULIN ASPART SUPPLEMENTAL SCALE SQ SCH ×2 (16:00→20:48)
[2017-03-14] MEDS: ceFAZolin 2 GM PREMIX 50 ML IV SCH ×2 (16:00→21:26)
[2017-03-14 20:18] VITALS: BP 102/60; PULSE 77; RESP 18; TEMP 97.1; O2SAT 94
[2017-03-14] MEDS: INSULIN DETEMIR 100 UNITS/ML VIAL SQ SCH (20:48)
[2017-03-14] MEDS: GABAPENTIN 100 MG CAP PO SCH (20:50)
[2017-03-14] MEDS: SODIUM CHLORIDE 0.9% FLUSH 10 ML FLUSH IV FLUSH SCH (20:50)
[2017-03-14] MEDS: DOCUSATE SODIUM 50 MG/SENNA 8.6 MG TAB PO SCH (20:50)
[2017-03-14] MEDS: PCA - TOTAL MG MORPHINE DELIVERED PER SHIFT SCH (20:51)
[2017-03-15] VITALS (7 sets, daily range): BP systolic 92–117; BP diastolic 53–77; PULSE 80–95; RESP 17–21; TEMP 96.2–98.6; O2SAT 92–96
[2017-03-15] MEDS: LACTATED RINGER'S 1000 ML INJ 1,000 ML IV SCH ×3 (02:39→21:46)
[2017-03-15] MEDS: RIVAROXABAN 10 MG TAB PO SCH (02:39)
[2017-03-15] MEDS: ceFAZolin 2 GM PREMIX 50 ML IV SCH (04:13)
[2017-03-15] MEDS: PCA - TOTAL MG MORPHINE DELIVERED PER SHIFT SCH ×3 (04:15→22:00)
[2017-03-15] MEDS: INSULIN ASPART SUPPLEMENTAL SCALE SQ SCH ×4 (06:05→21:48)
[2017-03-15 07:23] LABS: HEMATOCRIT 29.9 % (39.0-51.0); REVIEW FLAG FINAL
[2017-03-15] MEDS: PANTOPRAZOLE SOD 20 MG DELAYED RELEASE TAB PO SCH (07:29)
[2017-03-15] MEDS: DOCUSATE SODIUM 50 MG/SENNA 8.6 MG TAB PO SCH ×2 (07:29→21:45)
[2017-03-15] MEDS: SODIUM CHLORIDE 0.9% FLUSH 10 ML FLUSH IV FLUSH SCH ×2 (07:29→21:46)
[2017-03-15] MEDS: SPIRONOLACTONE 100 MG TAB PO SCH (07:29)
[2017-03-15 07:43] LABS: BICARBONATE 23.1 MEQ/L (21.0-32.0); POTASSIUM 5.4 MEQ/L (3.5-5.1)
--- NOTE | 2017-03-15 10:21 | PD.ORT.PN ---
Subjective Post Op Day #: 1 Subjective Remarks Pt is sitting upright in bed, awake and alert. He still seems to be slightly confused, most likely from anesthesia according to previously mentioned. RN confirms he was slightly confused over night. PT at bedside to work with pt. It was reported the pt pulled out his drain, but he does not remember. Admits left leg pain under control. No other complaints. Objective Vitals Vital Signs Date Time Temp Pulse Resp B/P Pulse Ox O2 Delivery O2 Flow Rate FiO2 03/15/17 08:00 97.1 84 21 117/77 96 03/15/17 04:20 96.2 82 17 101/63 95 03/15/17 04:15 18 03/15/17 00:30 98.1 80 17 95/53 95 03/14/17 20:51 18 03/14/17 20:18 97.1 77 18 102/60 94 03/14/17 16:00 97.2 88 15 121/87 94 03/14/17 15:30 88 20 147/73 94 Nasal Cannula 2 03/14/17 15:15 77 20 132/66 96 Nasal Cannula 2 03/14/17 15:00 85 20 144/78 96 Nasal Cannula 2 03/14/17 14:54 16 03/14/17 14:45 85 20 137/81 98 Nasal Cannula 2 03/14/17 14:30 85 20 140/80 93 Nasal Cannula 2 03/14/17 14:16 98.3 93 20 111/86 97 Simple Mask 6 I/O 03/14/17 03/14/17 03/14/17 03/15/17 03/15/17 03/15/17 07:00 15:00 23:00 07:00 15:00 23:00 Intake Total 1900 ml 1295 ml 840 ml Output Total 200 ml 525 ml 475 ml Balance 1700 ml 770 ml 365 ml Intake Oral 720 ml 240 ml IV Total 575 ml 600 ml Other 1900 ml Output Urine Total 400 ml 475 ml Drainage Total 125 ml Estimated Blood Loss 200 ml # Bowel Movements 0 0 Result Diagram: 03/15/17 0530 03/15/17 0530 Imaging Last Impressions Femur X-Ray 03/14/17 0000 Signed Impressions: Service Date/Time: Tuesday, March 14, 2017 13:04 - CONCLUSION: Intraoperative spot images showing distal femur fracture and internal fixation hardware. Anselmo Powers MD Procedures Revision open reduction internal fixation left femur fracture, implanted Synthes retrograde nail (03/14/17) Objective Remarks LLE: Dressing dry and intact. Brace in place. Minimal blood noted on brace from where drain was pulled. No drain. Tender to palpation with mild swelling around incision site. Appropriate range of motion expected post operatively. Freely able to move distal digits. No calf pain. Negative Ghazala's sign. Good cap refill. 2+ pedal pulses. Neurovascular intact. Admits to 'tingling' over distal digits, same as compared pre-operatively. Assessment & Plan Ortho Post Op Day #: 1 Problem List: (1) Mechanical complic of internal orthopedic device, implant or graft (2) Closed displaced spiral fracture of shaft of left femur (3) Liver cirrhosis (4) DM (diabetes mellitus) (5) Confusion Assessment and Plan Revision open reduction internal fixation left femur fracture, implanted Synthes retrograde nail Ortho status stable POD #1 Progress rehab - toe touch LLE, ok to remove brace for gentle ROM of knee. CKS for comfort. Start dressing changes POD #2 Xarelto for DVT prophylaxis Continue pain control and bowel regimen. Appreciate medical team's involvement in care managing liver failure/DM. Discharge planning. Mariann Perera Mar 15, 2017 10:21
--- NOTE | 2017-03-15 12:31 | HHI.PR ---
Subjective Remarks Patient seen and examined No acute event overnight Pain currently control Afebrile Objective Vitals Vital Signs Date Time Temp Pulse Resp B/P Pulse Ox O2 Delivery O2 Flow Rate FiO2 03/15/17 10:13 92 21 03/15/17 08:00 97.1 84 21 117/77 96 03/15/17 04:20 96.2 82 17 101/63 95 03/15/17 04:15 18 03/15/17 00:30 98.1 80 17 95/53 95 03/14/17 20:51 18 03/14/17 20:18 97.1 77 18 102/60 94 03/14/17 16:00 97.2 88 15 121/87 94 03/14/17 15:30 88 20 147/73 94 Nasal Cannula 2 03/14/17 15:15 77 20 132/66 96 Nasal Cannula 2 03/14/17 15:00 85 20 144/78 96 Nasal Cannula 2 03/14/17 14:54 16 03/14/17 14:45 85 20 137/81 98 Nasal Cannula 2 03/14/17 14:30 85 20 140/80 93 Nasal Cannula 2 03/14/17 14:16 98.3 93 20 111/86 97 Simple Mask 6 I/O 03/14/17 03/14/17 03/14/17 03/15/17 03/15/17 03/15/17 07:00 15:00 23:00 07:00 15:00 23:00 Intake Total 1900 ml 1295 ml 840 ml Output Total 200 ml 525 ml 475 ml Balance 1700 ml 770 ml 365 ml Intake Oral 720 ml 240 ml IV Total 575 ml 600 ml Other 1900 ml Output Urine Total 400 ml 475 ml Drainage Total 125 ml Estimated Blood Loss 200 ml # Bowel Movements 0 0 Result Diagram: 03/15/17 0530 03/15/17 0530 Imaging Last Impressions Femur X-Ray 03/14/17 0000 Signed Impressions: Service Date/Time: Tuesday, March 14, 2017 13:04 - CONCLUSION: Intraoperative spot images showing distal femur fracture and internal fixation hardware. Anselmo Powers MD Objective Remarks GENERAL: NAD SKIN: Warm and dry. HEAD: Normocephalic. EYES: No scleral icterus. No injection or drainage. NECK: Supple, trachea midline. No JVD or lymphadenopathy. CARDIOVASCULAR: Regular rate and rhythm without murmurs, gallops, or rubs. RESPIRATORY: Breath sounds equal bilaterally. No accessory muscle use. GASTROINTESTINAL: Abdomen soft, non-tender, nondistended. MUSCULOSKELETAL: No cyanosis, or edema. Status post left knee repair, dressing in place-neurovascular intact BACK: Nontender without obvious deformity. No CVA tenderness. A/P Assessment and Plan Revision open reduction internal fixation left femur fracture Management per orthopedic surgery Continue current postop care with pain management, postop antibiotics, incentive spirometry at bedside DVT prophylaxis per orthopedic surgery PT to treat and eval Diabetes type 2: Continue Levemir 5 units at bedtime and insulin sliding scale Diuretic neuropathy:continue Neurontin COPD: No exacerbation, DuoNeb when necessary and maintain oxygen saturation above 92%. DVT prophylaxis: Xarelto. Urinary retention: Straight cath now Hyperkalemia: Repeat potassium and treat for K> 5.6 with Kayexalate Dirk Rodrigues MD Mar 15, 2017 12:31
[2017-03-15] MEDS: MAGNESIUM HYDROXIDE SUSP 30 ML CUP PO PRN (21:45)
[2017-03-15] MEDS: GABAPENTIN 100 MG CAP PO SCH (21:45)
[2017-03-15] MEDS: MULTIVITAMINS/MINERALS THERAPEUTIC TAB PO SCH (21:45)
[2017-03-15] MEDS: INSULIN DETEMIR 100 UNITS/ML VIAL SQ SCH (21:47)
[2017-03-16] VITALS: BP 106/93; PULSE 93; RESP 17; TEMP 97.2; O2SAT 93
[2017-03-16] MEDS: RIVAROXABAN 10 MG TAB PO SCH (01:26)
[2017-03-16] MEDS: PCA - TOTAL MG MORPHINE DELIVERED PER SHIFT SCH ×3 (06:00→22:00)
[2017-03-16] MEDS: INSULIN ASPART SUPPLEMENTAL SCALE SQ SCH ×4 (06:32→21:55)
--- NOTE | 2017-03-16 07:51 | PD.ORT.PN ---
Subjective Post Op Day #: 2 Subjective Remarks The patient is awake alert. He has mild discomfort in the left lower extremity. He states the knee immobilizer is more uncomfortable with it on than off. He has no other specific complaint. Objective Vitals Vital Signs Date Time Temp Pulse Resp B/P Pulse Ox O2 Delivery O2 Flow Rate FiO2 03/16/17 06:00 18 03/16/17 00:00 97.2 93 17 106/93 93 03/15/17 22:00 18 03/15/17 20:45 96.7 91 17 107/54 92 03/15/17 16:00 98.6 95 18 92/67 96 03/15/17 14:00 18 03/15/17 12:00 96.5 94 19 98/69 95 03/15/17 10:13 92 21 03/15/17 08:00 97.1 84 21 117/77 96 I/O 03/15/17 03/15/17 03/15/17 03/16/17 03/16/17 03/16/17 07:00 15:00 23:00 07:00 15:00 23:00 Intake Total 840 ml 1420 ml 870 ml Output Total 475 ml 450 ml 275 ml 500 ml Balance 365 ml -450 ml 1145 ml 370 ml Intake Oral 240 ml 720 ml 320 ml IV Total 600 ml 700 ml 550 ml Output Urine Total 475 ml 450 ml 275 ml 500 ml # Bowel Movements 0 0 0 Result Diagram: 03/15/17 0530 03/15/17 1536 Imaging Last Impressions Femur X-Ray 03/14/17 0000 Signed Impressions: Service Date/Time: Tuesday, March 14, 2017 13:04 - CONCLUSION: Intraoperative spot images showing distal femur fracture and internal fixation hardware. Anselmo Powers MD Procedures Revision open reduction internal fixation left femur fracture, implanted Synthes retrograde nail (03/14/17) Objective Remarks LLE: Dressing dry and intact. Tender to palpation with mild swelling around incision site. Appropriate range of motion expected post operatively. Freely able to move distal digits. No calf pain. Negative Ghazala's sign. Good cap refill. 2+ pedal pulses. Neurovascular intact. Assessment & Plan Ortho Post Op Day #: 2 Problem List: (1) Mechanical complic of internal orthopedic device, implant or graft (2) Closed displaced spiral fracture of shaft of left femur (3) Liver cirrhosis (4) DM (diabetes mellitus) (5) Confusion Assessment and Plan Revision open reduction internal fixation left femur fracture, implanted Synthes retrograde nail Ortho status stable POD #2 Progress rehab - toe touch LLE, ok to remove brace for gentle ROM of knee. CKS for comfort. Start dressing changes Xarelto for DVT prophylaxis Continue pain control and bowel regimen. Appreciate medical team's involvement in care managing liver failure/DM. Discharge planning. Anticipate discharge 03/17/17 Deejay Garcia MD Mar 16, 2017 07:51
[2017-03-16 07:56] VITALS: BP 115/70; PULSE 98; RESP 19; TEMP 97.2; O2SAT 97
[2017-03-16] MEDS: SODIUM CHLORIDE 0.9% FLUSH 10 ML FLUSH IV FLUSH SCH ×2 (09:00→21:56)
[2017-03-16] MEDS: SPIRONOLACTONE 100 MG TAB PO SCH (09:09)
[2017-03-16] MEDS: MULTIVITAMINS/MINERALS THERAPEUTIC TAB PO SCH ×2 (09:09→21:53)
[2017-03-16] MEDS: DOCUSATE SODIUM 50 MG/SENNA 8.6 MG TAB PO SCH ×2 (09:09→21:53)
[2017-03-16] MEDS: PANTOPRAZOLE SOD 20 MG DELAYED RELEASE TAB PO SCH (09:09)
--- NOTE | 2017-03-16 10:07 | HHI.PR ---
Subjective Remarks Patient seen and examined Stable and afebrile Left knee pain well controlled. Objective Vitals Vital Signs Date Time Temp Pulse Resp B/P Pulse Ox O2 Delivery O2 Flow Rate FiO2 03/16/17 07:56 97.2 98 19 115/70 97 03/16/17 06:00 18 03/16/17 00:00 97.2 93 17 106/93 93 03/15/17 22:00 18 03/15/17 20:45 96.7 91 17 107/54 92 03/15/17 16:00 98.6 95 18 92/67 96 03/15/17 14:00 18 03/15/17 12:00 96.5 94 19 98/69 95 03/15/17 10:13 92 21 I/O 03/15/17 03/15/17 03/15/17 03/16/17 03/16/17 03/16/17 07:00 15:00 23:00 07:00 15:00 23:00 Intake Total 840 ml 1420 ml 870 ml Output Total 475 ml 450 ml 275 ml 500 ml Balance 365 ml -450 ml 1145 ml 370 ml Intake Oral 240 ml 720 ml 320 ml IV Total 600 ml 700 ml 550 ml Output Urine Total 475 ml 450 ml 275 ml 500 ml # Bowel Movements 0 0 0 Result Diagram: 03/15/17 0530 03/15/17 1536 Objective Remarks GENERAL: NAD SKIN: Warm and dry. HEAD: Normocephalic. EYES: No scleral icterus. No injection or drainage. NECK: Supple, trachea midline. No JVD or lymphadenopathy. CARDIOVASCULAR: Regular rate and rhythm without murmurs, gallops, or rubs. RESPIRATORY: Breath sounds equal bilaterally. No accessory muscle use. GASTROINTESTINAL: Abdomen soft, non-tender, nondistended. MUSCULOSKELETAL: No cyanosis, or edema. Status post left knee repair, dressing in place-neurovascular intact BACK: Nontender without obvious deformity. No CVA tenderness. A/P Assessment and Plan 71-year-old man with Revision open reduction internal fixation left femur fracture Management per orthopedic surgery Continue current postop care with pain management, incentive spirometry at bedside DVT prophylaxis with Xarelto PT to treat and eval Diabetes type 2: Continue Levemir 5 units at bedtime and insulin sliding scale Diuretic neuropathy:continue Neurontin COPD: No exacerbation, DuoNeb when necessary and maintain oxygen saturation above 92%. DVT prophylaxis: Xarelto. Urinary retention: Resolved Hyperkalemia: 5.1, monitor and treat accordingly Dirk Rodrigues MD Mar 16, 2017 10:07
[2017-03-16 12:00] VITALS: BP 100/63; PULSE 86; RESP 14; TEMP 96.9; O2SAT 94
[2017-03-16] MEDS: LACTATED RINGER'S 1000 ML INJ 1,000 ML IV SCH ×2 (15:51→23:21)
[2017-03-16 16:00] VITALS: BP 115/75; PULSE 90; RESP 19; TEMP 96.7; O2SAT 96
[2017-03-16 20:06] VITALS: BP 113/74; PULSE 85; RESP 19; TEMP 96.8; O2SAT 93
[2017-03-16] MEDS: GABAPENTIN 100 MG CAP PO SCH (21:53)
[2017-03-16] MEDS: MAGNESIUM HYDROXIDE SUSP 30 ML CUP PO PRN (21:55)
[2017-03-16] MEDS: INSULIN DETEMIR 100 UNITS/ML VIAL SQ SCH (21:55)
[2017-03-17] VITALS: BP 98/63; PULSE 86; RESP 17; TEMP 98.3; O2SAT 94
[2017-03-17] MEDS: RIVAROXABAN 10 MG TAB PO SCH (01:24)
[2017-03-17 04:00] VITALS: BP 94/58; PULSE 86; RESP 16; TEMP 99.1; O2SAT 98
[2017-03-17] MEDS: PCA - TOTAL MG MORPHINE DELIVERED PER SHIFT SCH ×2 (06:00→14:00)
[2017-03-17] MEDS: INSULIN ASPART SUPPLEMENTAL SCALE SQ SCH ×2 (07:00→11:41)
[2017-03-17 08:00] VITALS: BP 104/62; PULSE 81; RESP 18; TEMP 97.2; O2SAT 98
[2017-03-17] MEDS: SPIRONOLACTONE 100 MG TAB PO SCH (08:52)
[2017-03-17] MEDS: PANTOPRAZOLE SOD 20 MG DELAYED RELEASE TAB PO SCH (08:53)
[2017-03-17] MEDS: DOCUSATE SODIUM 50 MG/SENNA 8.6 MG TAB PO SCH (08:53)
[2017-03-17] MEDS: MULTIVITAMINS/MINERALS THERAPEUTIC TAB PO SCH (08:53)
[2017-03-17] MEDS: SODIUM CHLORIDE 0.9% FLUSH 10 ML FLUSH IV FLUSH SCH (08:54)
--- NOTE | 2017-03-17 11:03 | HHI.PR ---
Subjective Remarks Patient seen and examined Stable and ready for discharge Pain to left knee well-controlled Objective Vitals Vital Signs Date Time Temp Pulse Resp B/P Pulse Ox O2 Delivery O2 Flow Rate FiO2 03/17/17 08:00 97.2 81 18 104/62 98 03/17/17 06:00 16 03/17/17 04:00 99.1 86 16 94/58 98 03/17/17 00:00 98.3 86 17 98/63 94 03/16/17 22:00 17 03/16/17 20:06 96.8 85 19 113/74 93 03/16/17 16:00 96.7 90 19 115/75 96 03/16/17 14:00 18 03/16/17 12:00 96.9 86 14 100/63 94 I/O 03/16/17 03/16/17 03/16/17 03/17/17 03/17/17 03/17/17 07:00 15:00 23:00 07:00 15:00 23:00 Intake Total 870 ml 480 ml 720 ml 546 ml Output Total 500 ml 525 ml 230 ml 600 ml Balance 370 ml -45 ml 490 ml -54 ml Intake Oral 320 ml 480 ml 480 ml 300 ml IV Total 550 ml 240 ml 246 ml Output Urine Total 500 ml 525 ml 230 ml 600 ml # Voids 2 # Bowel Movements 0 0 0 Result Diagram: 03/15/17 0530 03/15/17 1536 Objective Remarks GENERAL: NAD SKIN: Warm and dry. HEAD: Normocephalic. EYES: No scleral icterus. No injection or drainage. NECK: Supple, trachea midline. No JVD or lymphadenopathy. CARDIOVASCULAR: Regular rate and rhythm without murmurs, gallops, or rubs. RESPIRATORY: Breath sounds equal bilaterally. No accessory muscle use. GASTROINTESTINAL: Abdomen soft, non-tender, nondistended. MUSCULOSKELETAL: No cyanosis, or edema. Status post left knee repair, dressing in place-neurovascular intact BACK: Nontender without obvious deformity. No CVA tenderness. A/P Assessment and Plan 71-year-old man with Revision open reduction internal fixation left femur fracture Management per orthopedic surgery Continue current with pain management, incentive spirometry at bedside DVT prophylaxis with Xarelto PT to treat and eval Diabetes type 2: Continue Levemir 5 units at bedtime and insulin sliding scale Diuretic neuropathy:continue Neurontin COPD: No exacerbation, DuoNeb when necessary and maintain oxygen saturation above 92%. DVT prophylaxis: Xarelto. Urinary retention: Resolved Hyperkalemia: 5.1, monitor and treat accordingly Discharge Planning Discharge per orthopedic surgery Dirk Rodrigues MD Mar 17, 2017 11:03
[2017-03-17] MEDS ORDERED: XARE10TA PO (11:38)
[2017-03-17] MEDS ORDERED: MISC-163 (11:38)
[2017-03-17] MEDS ORDERED: WALKER/ADULT/FO1 MIS (11:38)
[2017-03-17] MEDS ORDERED: DILA2TAB2 PO (11:38)
--- NOTE | 2017-03-17 11:45 | PD.ORT.PN ---
Subjective Post Op Day #: 3 Subjective Remarks Pt is sitting upright in chair, awake and alert. Admits left leg pain under control. Feels ready for d/c today to rehab. No other complaints. Objective Vitals Vital Signs Date Time Temp Pulse Resp B/P Pulse Ox O2 Delivery O2 Flow Rate FiO2 03/17/17 08:00 97.2 81 18 104/62 98 03/17/17 06:00 16 03/17/17 04:00 99.1 86 16 94/58 98 03/17/17 00:00 98.3 86 17 98/63 94 03/16/17 22:00 17 03/16/17 20:06 96.8 85 19 113/74 93 03/16/17 16:00 96.7 90 19 115/75 96 03/16/17 14:00 18 03/16/17 12:00 96.9 86 14 100/63 94 I/O 03/16/17 03/16/17 03/16/17 03/17/17 03/17/17 03/17/17 07:00 15:00 23:00 07:00 15:00 23:00 Intake Total 870 ml 480 ml 720 ml 546 ml Output Total 500 ml 525 ml 230 ml 600 ml Balance 370 ml -45 ml 490 ml -54 ml Intake Oral 320 ml 480 ml 480 ml 300 ml IV Total 550 ml 240 ml 246 ml Output Urine Total 500 ml 525 ml 230 ml 600 ml # Voids 2 # Bowel Movements 0 0 0 Result Diagram: 03/15/17 0530 03/15/17 1536 Imaging Last Impressions Femur X-Ray 03/14/17 0000 Signed Impressions: Service Date/Time: Tuesday, March 14, 2017 13:04 - CONCLUSION: Intraoperative spot images showing distal femur fracture and internal fixation hardware. Anselmo Powers MD Procedures Revision open reduction internal fixation left femur fracture, implanted Synthes retrograde nail (03/14/17) Objective Remarks LLE: Dressing dry and intact. Tender to palpation with mild swelling around incision site. Appropriate range of motion expected post operatively. Freely able to move distal digits. No calf pain. Negative Ghazala's sign. Good cap refill. 2+ pedal pulses. Neurovascular intact. Assessment & Plan Ortho Post Op Day #: 3 Problem List: (1) Mechanical complic of internal orthopedic device, implant or graft (2) Closed displaced spiral fracture of shaft of left femur (3) Liver cirrhosis (4) DM (diabetes mellitus) (5) Confusion Assessment and Plan Revision open reduction internal fixation left femur fracture, implanted Synthes retrograde nail Ortho status stable POD #3 Progress rehab - toe touch LLE, ok to remove brace for gentle ROM of knee. CKS for comfort. Daily dressing changes - RN at rehab to d/c pola 03/22/17, apply steri stripes, cleanse with alcohol. Xarelto for DVT prophylaxis Continue pain control and bowel regimen. Appreciate medical team's involvement in care managing liver failure/DM. Clear for discharge from an orthopedic standpoint. Mariann Perera Mar 17, 2017 11:45
--- NOTE | 2017-03-17 11:50 | HHI.DS ---
Discharge Summary Admission Date Mar 14, 2017 at 08:13 Discharge Date: Mar 17, 2017 Admitting Diagnosis Failure of internal fixation components, left femur Diagnosis: (1) Mechanical complic of internal orthopedic device, implant or graft (2) Closed displaced spiral fracture of shaft of left femur (3) Liver cirrhosis (4) DM (diabetes mellitus) (5) Confusion Procedures Revision open reduction internal fixation left femur fracture, implanted Synthes retrograde nail (03/14/17) Brief History This is a 71 year old male patient who was approximately 6 weeks postoperative ORIF of a left femur fracture. The patient was treated with a long plate. This did require cerclage cables around a total hip prosthesis on the proximal aspect. Patient has been followed on an outpatient basis. He has had progressive loss of reduction. At his last visit he was noted to have a flexion deformity at the fracture site. There was associated pain and limited knee mobility. Recommendations were therefore given for revision of the internal fixation. CBC/BMP: 03/15/17 0530 03/15/17 1536 Significant Findings Laboratory Tests Test 03/15/17 05:30 Hemoglobin 9.5 GM/DL (13.0-17.0) Hematocrit 29.9 % (39.0-51.0) Sodium Level 132 MEQ/L (136-145) Potassium Level 5.4 MEQ/L (3.5-5.1) Estimat Glomerular Filtration 56 ML/MIN (>89) Rate Random Glucose 168 MG/DL (74-106) Imaging Last Impressions Femur X-Ray 03/14/17 0000 Signed Impressions: Service Date/Time: Tuesday, March 14, 2017 13:04 - CONCLUSION: Intraoperative spot images showing distal femur fracture and internal fixation hardware. Anselmo Powers MD PE at Discharge LLE: Dressing dry and intact. Tender to palpation with mild swelling around incision site. Appropriate range of motion expected post operatively. Freely able to move distal digits. No calf pain. Negative Ghazala's sign. Good cap refill. 2+ pedal pulses. Neurovascular intact. Hospital Course On the day of admission the patient was taken to the operating room where the patient underwent revision open reduction internal fixation left femur fracture. The patient tolerated the procedure well. For details of operative report please see dictated operative report. The patient was placed on Ancef for infection prophylaxis and Xarelto for DVT prophylaxis. Physical therapy was consulted for discharge planning. The patient will be discharged to rehab center and it has been arranged. At the time of discharge the patient was afebrile. Incision line noted to be healing well. The patient will be discharged with Xarelto for DVT prophylaxis and prescribed Dilaudid for pain. The patient acknowledges full understanding of plan of treatment and agrees to it. Pt Condition on Discharge: Good Discharge Disposition: Discharge to SNF Discharge Instructions Diet Instructions: High Fiber Diet Activities You Can Perform: Toe Touch Weight Bearing Activities to Avoid: Lifting/Bending Mariann Perera Mar 17, 2017 11:50
[2017-03-17 12:00] VITALS: BP 110/67; PULSE 89; RESP 18; TEMP 95.7; O2SAT 97
== END 2017-03-17 14:34 | DRG 481 ==
LOC: HSDI 03-14 08:13 → N06A 03-14 15:52
PROVIDERS: ADMIT Orthopaedic Surgery Sports Medicine; ATTEND Orthopaedic Surgery Sports Medicine
PROC: 0QP904Z Removal of Internal Fixation Device from Left Femoral Shaft, Open Approach (ICD-10-PCS; 2017-03-14)
PROC: 0QS906Z Reposition Left Femoral Shaft with Intramedullary Internal Fixation Device, Open Approach (ICD-10-PCS; principal; 2017-03-14 10:31)
DX: S72.342G Displaced spiral fracture of shaft of left femur, subsequent encounter for closed fracture with delayed healing (principal); T84.195A Other mechanical complication of internal fixation device of left femur, initial encounter; K74.60 Unspecified cirrhosis of liver; E87.5 Hyperkalemia; G62.9 Polyneuropathy, unspecified; M97.02XD Periprosthetic fracture around internal prosthetic left hip joint, subsequent encounter; E11.9 Type 2 diabetes mellitus without complications; J44.9 Chronic obstructive pulmonary disease, unspecified; R33.9 Retention of urine, unspecified; R41.0 Disorientation, unspecified; K21.9 Gastro-esophageal reflux disease without esophagitis; Y83.8 Other surgical procedures as the cause of abnormal reaction of the patient, or of later complication, without mention of misadventure at the time of the procedure; Z79.4 Long term (current) use of insulin; Z86.14 Personal history of Methicillin resistant Staphylococcus aureus infection; Z87.891 Personal history of nicotine dependence; Z88.5 Allergy status to narcotic agent; Z88.6 Allergy status to analgesic agent; Z96.642 Presence of left artificial hip joint
CPT/HCPCS: 73552; 76000; 80048; 82948; 84132; 85014; 85018; 85027; 85610; 86850; 86900; 86901; 87015; 87070; 87102; 87116; 87205; 87206; 87641; 93005; 94150; C1713; C1769; J0690; J1580; J1815; J2270; J2370; J2405; J2710; J3010; J7120; L1830